=== PATIENT | female | born 1935 | race Caucasian/White ===

== ENCOUNTER 2022-08-31 17:55 | Outpatient (CLI) | payer MEDICARE, BC, SELFPAY | END 2022-08-31 17:56 | disposition home or self-care (01) | LOC: AMB 09-05 19:30 | PROVIDERS: PCP Family Medicine; Visit Provider Emergency Medicine Emergency Medical Services | DX: R06.09 Other forms of dyspnea (principal); R42 Dizziness and giddiness | CPT/HCPCS: A0425; A0429 ==

== ENCOUNTER 2022-08-31 18:39 | Observation (INO) | payer MEDICARE, BC, SELFPAY ==
[2022-08-31] VITALS (20 sets, daily range): BP systolic 127–167; BP diastolic 59–82; PULSE 65–86; RESP 16–21; TEMP 36.8–36.9; O2SAT 90–97; BMI 24.7; BMI 25.1
--- NOTE | 2022-08-31 18:58 | ED.NURSE ---
Patient reports having a syncopal episode at home prior to calling EMS. She reports no head strike or blood thinner.
--- NOTE | 2022-08-31 19:01 | CRLHL7_ITS ---
For Patients: As a result of the Cures Act, medical imaging exams and procedure reports are released immediately into your electronic medical record. You may view this report before your referring provider. If you have questions, please contact your health care provider. INDICATION: Cough, syncope. TECHNIQUE: Chest 1 views. COMPARISON: Chest x-ray from 10/27/2017. FINDINGS: Lungs: Clear lungs. No consolidation. Pleura: No pleural effusion or pneumothorax. Heart and Mediastinum: The cardiomediastinal silhouette is normal. The vessels are unremarkable. Bones: Unremarkable. IMPRESSION: No acute cardiopulmonary disease. Dictated by Eric Jordan MD @ 08/31/2022 7:35:27 PM (Electronically Signed)
--- NOTE | 2022-08-31 19:03 | ED.GENADULT ---
HPI - General Adult General Time Seen by Provider: 19:03 Date Seen: 08/31/22 Chief complaint: Weakness Stated complaint: Shortness of Breath Time Seen by Provider: 08/31/22 18:57 Source: patient, family, EMS and RN notes reviewed Mode of arrival: EMS Limitations: no limitations History of Present Illness HPI narrative: Patient is an 86-year-old female coming in via EMS after she became syncopal at home. This was witnessed by her relative. She was sitting in her walker and started to slump forward. The patient was caught and then came 2. She was feeling dizzy and nauseated. She has really not felt like eating today. She started coughing yesterday. She required some propping up to be able to sleep overnight. She did do a home COVID test which was negative. She states she is fully vaccinated. She is not nauseated at this time, did not have any vomiting. No diarrhea. Baseline has urinary incontinence. No chest pain, palpitations. Her problem list is reviewed, medications reviewed. Does not sound like there is any seizure activity, spell was brief. She remembers events right before and after. Related Data Home Medications Medication Instructions Recorded Confirmed acetaminophen 500 mg tablet mg PO PRN 05/15/22 08/14/22 albuterol 90 mcg/actuation aerosol 2 spray inhalation PRN 05/15/22 08/14/22 inhaler alendronate 70 mg tablet (Fosamax) 70 mg PO QWEEK 05/15/22 08/14/22 amlodipine 5 mg tablet mg PO DAILY 05/15/22 08/14/22 ascorbic acid (vitamin C) 500 mg 500 mg PO DAILY 05/15/22 08/31/22 tablet aspirin 81 mg tablet,delayed mg PO DAILY 05/15/22 08/14/22 release benzonatate 200 mg capsule 200 mg PO TID 05/15/22 08/14/22 cholecalciferol (vitamin D3) 25 1,000 unit PO DAILY 05/15/22 08/31/22 mcg (1,000 unit) tablet docusate sodium 100 mg capsule 100 mg PO QDAY 05/15/22 08/31/22 melatonin 3 mg capsule 3 mg PO .Bedtime as needed PRN 05/15/22 08/31/22 metoprolol tartrate 100 mg tablet mg PO BID 05/15/22 08/14/22 multivitamin with minerals 1 tab PO ONCE 05/15/22 08/31/22 (Multiple Vitamin-Minerals tablet) rosuvastatin 20 mg tablet 20 mg PO .Bedtime 05/15/22 08/31/22 zinc sulfate 50 mg zinc (220 mg) mg PO DAILY 05/15/22 08/14/22 capsule lisinopril 10 mg tablet 30 mg PO DAILY 08/14/22 08/31/22 Previous Rx's Medication Instructions Recorded clobetasol 0.05 % topical ointment 1 applic topical .Weekly #15 grams 05/15/22 Allergies Allergy/AdvReac Type Severity Reaction Status Date / Time No Known Allergies Allergy Unknown Unknown Uncoded 08/14/22 08:41 Review of Systems Status of ROS: Reports: 10 or more systems reviewed and unremarkable except as noted in History and below PFSH [facility] Social History Smoking Status: Former smoker Do you use any of these nicotine containing products: None Second hand tobacco smoke exposure: No How often do you have a drink containing alcohol: never AUDIT-C Alcohol total score: 0 Non-prescribed substance use: denies use service: No Exam Const: Vital Signs, click to edit/add: Vital Signs - 24 hr 08/31/22 18:46 08/31/22 19:23 08/31/22 19:11 Temperature 98.2 F Pulse Rate 75 Pulse Rate [Pulse Oximeter] 80 Respiratory Rate 16 Blood Pressure [Le ft Upper Arm] 138/65 Pulse Oximetry 93 94 95 Oxygen Delivery Me thod Room Air Documenting provider has reviewed patient's vital signs: yes Common normals: no apparent distress, oriented x3, no limitations, healthy appearing, alert and well nourished General appearance: cooperative, comfortable, well kempt and well developed Nutritional appearance: thin HENMT: Common normals: normocephalic, head/scalp atraumatic, hearing grossly normal bilaterally, external ears normal, external nose normal, nasal mucous membranes and turbinates normal, moist oral mucous membranes and oropharynx normal Head and scalp: normocephalic and atraumatic Nose: external nose normal and nasal mucous membranes and turbinates normal External ear: external ears normal Eye: Common normals: PERRL, EOMs intact bilaterally, conjunctivae normal and no scleral icterus Conjunctiva: conjunctiva(e) normal Pupil: PERRL Neck & C-Spine: Common normals: full ROM, no lymphadenopathy, supple, no meningeal signs, no JVD and thyroid normal Thyroid: thyroid normal Chest: Common normals: inspection of chest normal (Has some kyphosis) and palpation of chest normal Resp: Common normals: normal respiratory effort, no retractions, no use of accessory muscles and clear to auscultation bilaterally Auscultation: clear to auscultation bilaterally Cardio: Common normals: no JVD, regular rate, regular rhythm, S1 normal heart sound, S2 normal heart sound, no gallops, no clicks, no murmurs and no rub Rate: regular rate Rhythm: regular rhythm Heart sounds: S1 normal and S2 normal GI: Common normals: Normal to inspection, nondistended, normoactive bowel sounds present, soft to palpation, non-tender, no hepatosplenomegaly and no masses Palpation: soft and no hepatosplenomegaly Extremity: Other: No lower extremity edema, no calf tenderness. Neuro: Common normals: oriented x3, CN's II-XII intact bilaterally, moves all extremities, no focal motor deficits and no sensory deficits noted Sensorium/orientation: alert Meningeal signs: no meningeal signs Speech: speech normal Psych: Appearance: well kempt Skin: Common normals: no rashes or lesions noted General skin exam: no rashes or lesions noted Course Course Hospital Course: Patient will be on cardiac monitoring and pulse oximetry. We will do the triple swab viral panel. Will get a portable chest x-ray. Will get full complement of labs. She certainly could have something along the lines of influenza or COVID, causing weakness. Pneumonia is a possibility as well. Will look at cardiac markers. She is having no chest pain, is not tachypneic, not tachycardic, not hypotensive, doubt this is thromboembolic disease or any significant cardiac diagnosis. She has no focal deficits, very unlikely for this to be neurologic. Will not be doing a head CT at this time as I think the benefits of this are minimal to none. Reevaluation(s) Reevaluation #1: Reviewed that patient has COVID. No other concerning etiology at this time found for cause of syncope other than the COVID and probable weakness. They both feel patient is too weak to return home. She is not hypoxic here. Did discuss REM does severe, use for treatment in early COVID to help minimize progression of disease. She would like to proceed with treatment. I subsequently contacted the hospitalist who will be down to see the patient. She does agree with starting Remdesivir and I have ordered the initial 200 mg IV in the 3 day dose treatment protocol. Time: 21:00 Vital Signs Vital signs: Initial Vital Signs Temperature 98.2 F 08/31/22 18:46 Temperature Source Temporal Artery Scan 08/31/22 18:46 Pulse Rate 80 08/31/22 18:46 Respiratory Rate 16 08/31/22 18:46 Blood Pressure 138/65 08/31/22 18:46 Blood Pressure Mean 89 08/31/22 18:46 Blood Pressure Position Semi-Fowlers 08/31/22 18:46 Pulse Oximetry 93 08/31/22 18:46 Oxygen Delivery Method 08/31/22 18:46 Vital Signs Temperature 98.2 F 08/31/22 18:46 Pulse Rate 80 08/31/22 18:46 Respiratory Rate 16 08/31/22 18:46 Blood Pressure 138/65 08/31/22 18:46 Pulse Oximetry 93 08/31/22 18:46 Oxygen Delivery Method 08/31/22 18:46 Temperature 98.2 F 08/31/22 18:46 Pulse Rate 75 08/31/22 19:11 Respiratory Rate 16 08/31/22 18:46 Blood Pressure 138/65 08/31/22 18:46 Pulse Oximetry 94 08/31/22 19:23 Oxygen Delivery Method 08/31/22 18:46 Medical Decision Making Lab Data Lab results reviewed: Yes I reviewed the patient's lab results Labs: Lab Results 08/31/22 08/31/22 08/31/22 Range/Units 19:02 19:20 19:20 WBC 7.58 (4.50-11.00) K/uL RBC 4.40 (4.00-5.20) m/uL Hgb 13.7 (12.0-16.0) gm/dL Hct 41.7 (33.0-51.0) % MCV 95 (80-100) fL MCH 31 (26-34) pg MCHC 33 (32-36) gm/dL RDW Coeff of Sean 12.4 (11.5-15.5) % Plt Count 164 (140-440) K/uL Neut % (Auto) 87.5 H (42.0-72.0) % Lymph % (Auto) 6.2 L (20-44) % Graham % (Auto) 5.9 (0.0-11.0) % Eos % (Auto) 0.0 (0.0-7.0) % Baso % (Auto) 0.1 (0.0-3.0) % Neut # (Auto) 6.60 (1.7-7.0) K/uL Lymph # (Auto) 0.50 L (0.90-2.90) K/uL Graham # (Auto) 0.40 (0.00-0.90) K/UL Eos # (Auto) 0.00 (0.00-0.50) K/uL Baso # (Auto) 0.01 (0.00-0.30) K/uL Sodium (135-149) mmol/L Potassium (3.6-5.1) mmol/L Chloride (96-114) mmol/L Carbon Dioxide (20-32) mmol/L BUN (7-30) mg/dL Creatinine (0.5-1.5) mg/dL Estimated Creat Clear Estimated GFR ml/min Glucose (60-115) mg/dL Lactate (0.5-1.9) mmol/L Calcium (8.4-10.6) mg/dL Total Bilirubin (0.1-1.5) mg/dL AST (12-35) U/L ALT (4-35) U/L Alkaline Phosphatase (40-150) U/L C-Reactive Protein 1.1 H (0.5-1.0) mg/dL NT-Pro-B Natriuret Pep pg/mL Total Protein (6.0-8.3) g/dL Albumin (3.3-5.0) g/dL SARS-CoV-2 (PCR) POSITIVE SARS-CoV-2 A (Negative) Influenza Type A (PCR) Negative PCR FLU A (Negative) Influenza Type B (PCR) Negative PCR FLU B (Negative) RSV (PCR) Negative PCR RSV (Negative) POC Troponin I (0.01-0.04) ng/ml 08/31/22 08/31/22 08/31/22 Range/Units 19:20 19:20 19:20 WBC (4.50-11.00) K/uL RBC (4.00-5.20) m/uL Hgb (12.0-16.0) gm/dL Hct (33.0-51.0) % MCV (80-100) fL MCH (26-34) pg MCHC (32-36) gm/dL RDW Coeff of Sean (11.5-15.5) % Plt Count (140-440) K/uL Neut % (Auto) (42.0-72.0) % Lymph % (Auto) (20-44) % Graham % (Auto) (0.0-11.0) % Eos % (Auto) (0.0-7.0) % Baso % (Auto) (0.0-3.0) % Neut # (Auto) (1.7-7.0) K/uL Lymph # (Auto) (0.90-2.90) K/uL Graham # (Auto) (0.00-0.90) K/UL Eos # (Auto) (0.00-0.50) K/uL Baso # (Auto) (0.00-0.30) K/uL Sodium 137 (135-149) mmol/L Potassium 3.5 L (3.6-5.1) mmol/L Chloride 102 (96-114) mmol/L Carbon Dioxide 28 (20-32) mmol/L BUN 10 (7-30) mg/dL Creatinine 0.6 (0.5-1.5) mg/dL Estimated Creat Clear 33.12 Estimated GFR 88 ml/min Glucose 132 H (60-115) mg/dL Lactate 1.1 (0.5-1.9) mmol/L Calcium 8.7 (8.4-10.6) mg/dL Total Bilirubin 0.7 (0.1-1.5) mg/dL AST 25 (12-35) U/L ALT 18 (4-35) U/L Alkaline Phosphatase 58 (40-150) U/L C-Reactive Protein (0.5-1.0) mg/dL NT-Pro-B Natriuret Pep 1790 pg/mL Total Protein 6.8 (6.0-8.3) g/dL Albumin 4.2 (3.3-5.0) g/dL SARS-CoV-2 (PCR) (Negative) Influenza Type A (PCR) (Negative) Influenza Type B (PCR) (Negative) RSV (PCR) (Negative) POC Troponin I 0.00 L (0.01-0.04) ng/ml Imaging Data Chest x-ray: Attestation: I have reviewed the pertinent imaging results. My impression: I see no acute pathology on my preliminary read. Radiologist's impression: Patient: SANDY MARMOLEJO Facility:?[facility] Patient ID:?[id number] Site Patient ID:?[id number]. Site :?[id number] Study:?XRay Chest PORTABLE-08/31/2022 7:32:34 PM Ordering Physician:George Price Final Report: INDICATION: Cough, syncope. TECHNIQUE: Chest 1 views. COMPARISON: Chest x-ray from 10/27/2017. FINDINGS: Lungs: Clear lungs. No consolidation. Pleura: No pleural effusion or pneumothorax. Heart and Mediastinum: The cardiomediastinal silhouette is normal. The vessels are unremarkable. Bones: Unremarkable. IMPRESSION: No acute cardiopulmonary disease. Dictated by Eric Jordan MD @ 08/31/2022 7:35:27 PM (Electronic Signature) ECG Data Attestation: I personally reviewed and interpreted this ECG as follows: (Normal sinus rhythm, 74 beats per minute. Flattened T-waves which are nonspecifically arranged. No significant ST segment change. QT corrected 439 milliseconds. Some artifact.) Prior ECG tracings: not available for review Critical Care Time Critical Care Time Critical Care Time: No Discharge Plan Discharge Clinical Impression: COVID-19, Syncope, Weakness Patient Disposition: Admitted As Inpatient Condition: Stable Prescriptions: No Action melatonin 3 mg capsule 3 mg PO .Bedtime as needed PRN cholecalciferol (vitamin D3) 25 mcg (1,000 unit) tablet 1,000 unit PO DAILY zinc sulfate 50 mg zinc (220 mg) capsule PO DAILY rosuvastatin 20 mg tablet 20 mg PO .Bedtime albuterol 90 mcg/actuation aerosol 2 spray inhalation PRN ascorbic acid (vitamin C) 500 mg tablet 500 mg PO DAILY acetaminophen 500 mg tablet PO PRN aspirin 81 mg tablet,delayed release (DR/EC) PO DAILY amlodipine 5 mg tablet PO DAILY metoprolol tartrate 100 mg tablet PO BID alendronate [Fosamax] 70 mg tablet 70 mg PO QWEEK Multiple Vitamin-Minerals Tablet 1 tab PO ONCE docusate sodium 100 mg capsule 100 mg PO QDAY benzonatate 200 mg capsule 200 mg PO TID clobetasol 0.05 % ointment 1 applic topical .Weekly Qty: 15 1RF Rx Instructions: APPLY SPARINGLY TO AFFECTED AREA lisinopril 10 mg tablet 30 mg PO DAILY Follow Up/Referrals: Chucho Daugherty MD [Primary Care Provider] -
[2022-08-31 19:34] LABS: Lactate* 1.1 mmol/L (0.5-1.9)
[2022-08-31 19:35] LABS: Basophils Absolute Auto 0.01 K/uL (0.00-0.30); Basophils Percent Auto 0.1 % (0.0-3.0); Hematocrit 41.7 % (33.0-51.0); Hemoglobin* 13.7 gm/dL (12.0-16.0); Immature Granulocytes Abs Auto 0.02 K/uL (0.00-0.30); Immature Granulocytes Pct Auto 0.3 %; Lymphocytes Percent Auto 6.2 % (20-44); Mean Corpuscular HGB Conc 33 gm/dL (32-36); Mean Corpuscular Hemoglobin 31 pg (26-34); Mean Corpuscular Volume 95 fL (80-100); Monocytes Percent Auto 5.9 % (0.0-11.0); Neutrophils Percent Auto 87.5 % (42.0-72.0); Platelet Count* 164 K/uL (140-440); RDW Coefficient of Variation % 12.4 % (11.5-15.5); White Blood Count* 7.58 K/uL (4.50-11.00)
[2022-08-31 19:42] LABS: Slide Review Reflex No
[2022-08-31 20:14] LABS: Albumin* 4.2 g/dL (3.3-5.0); Chloride* 102 mmol/L (96-114); Sodium* 137 mmol/L (135-149)
[2022-08-31 20:15] LABS: Potassium* 3.5 mmol/L (3.6-5.1)
[2022-08-31 20:16] LABS: PCR FLU A Negative PCR FLU A (Negative); PCR FLU B Negative PCR FLU B (Negative); PCR RSV Negative PCR RSV (Negative)
[2022-08-31 20:17] LABS: Alanine Aminotransferase* 18 U/L (4-35); Alkaline Phosphatase* 58 U/L (40-150); Aspartate Amino Transferase* 25 U/L (12-35); Bilirubin Total* 0.7 mg/dL (0.1-1.5); Blood Urea Nitrogen* 10 mg/dL (7-30); Carbon Dioxide* 28 mmol/L (20-32); Creatinine* 0.6 mg/dL (0.5-1.5); Est. Creatinine Clearance* 33.12; Estimated Glomerular Filt Rate 88 ml/min; Glucose* 132 mg/dL (60-115); Total Protein* 6.8 g/dL (6.0-8.3)
[2022-08-31 20:18] LABS: Calcium* 8.7 mg/dL (8.4-10.6)
[2022-08-31 20:20] LABS: C Reactive Protein* 1.1 mg/dL (0.5-1.0)
[2022-08-31 20:21] LABS: SARS PCR* POSITIVE SARS-CoV-2 (Negative)
[2022-08-31 20:41] LABS: NT Pro B Type NatriureticPept* 1790 pg/mL
--- NOTE | 2022-08-31 21:46 | ED.NURSE ---
given report to Eris Phipps who will resume care of patient on the floor room [id number] via cart.
--- NOTE | 2022-08-31 22:22 | PM.IMHP1 ---
Hospitalist- H&P: HPI History of Present Illness Date Seen: 08/31/22 Chief complaint: Shortness of Breath Narrative: Sarita Bill is a 86 year old female who was BIBA today after syncopal episode at home, witnessed by her daughter Lali, who accompanies her for H&P. Sarita has felt poorly for the last 2 days; symptoms started with fatigue and coughing. She coughed so hard last night she struggled to sleep. This morning, she was using her walker (which she does not always use at home) and was standing to filler remitted fire, when she felt acutely dizzy (no chest pain or palpitations). She sat down on her walker and proceeded to have a syncopal episode; this was witnessed by her daughter, who was able to catch her so that she did not hit her head. Episode resolved spontaneously without seizure activity, EMS was then called. Sarita remembers incidents before and after event. ER course and findings: - EKG described as reassuring - no acute findings on chest x-ray - reassuring baseline labs - + COVID, no hypoxia. Remdesivir initiated in the emergency room Patient's past medical and surgical history reviewed and updated. Her PCP is Dr. Daugherty locally and she falls with Dr. Dickens of Cardiology for her CAD/CABG history. Her lisinopril was recently increased from 20-->30 mg a day; she is also on 10 mg of amlodipine and 100 mg of metoprolol BID for blood pressure control. She was earlier this year; lives with daughter Lali locally. Nonsmoker, no ETOH use. 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 She has 2 biological children, 4 step children; they would all shared medical decision-making duties if needed. She requests DNR/DNI status. Review of Systems Narrative: Patient notes said since she had her CABG in 2019 she occasionally feels her heartbeat in her throat, primarily in the evenings. Two nights ago, when she felt this, she felt that her heart was beating faster than usual, and maybe was irregular. Chronic constipation, better with daily fiber supplementation. + pessary in place. [facility] Medical History (Updated 08/31/22 @ 22:43 by Darshana Delgado MD) Cholelithiasis with cholecystitis Coronary artery disease Essential hypertension Fibromyalgia Hyperlipidemia Lichen sclerosus Malignant neoplasm of skin Osteoarthritis Osteopenia Polyp of colon Rectocele Stress incontinence in female Vaginal pessary present Vaginal vault prolapse Surgical History (Updated 08/31/22 @ 22:22 by Darshana Delgado MD) H/O: hysterectomy History of tonsillectomy Hx of CABG Total knee replacement status Social History Smoking Status: Former smoker Do you use any of these nicotine containing products: None Second hand tobacco smoke exposure: No How often do you have a drink containing alcohol: never AUDIT-C Alcohol total score: 0 Non-prescribed substance use: denies use service: No Meds Home Medications and Allergies Home Medications Medication Instructions Recorded Confirmed Type acetaminophen 500 mg tablet mg PO PRN 05/15/22 08/14/22 History albuterol 90 mcg/actuation aerosol 2 spray inhalation PRN 05/15/22 08/14/22 History inhaler alendronate 70 mg tablet (Fosamax) 70 mg PO QWEEK 05/15/22 08/14/22 History amlodipine 5 mg tablet mg PO DAILY 05/15/22 08/14/22 History ascorbic acid (vitamin C) 500 mg 500 mg PO DAILY 05/15/22 08/31/22 History tablet aspirin 81 mg tablet,delayed mg PO DAILY 05/15/22 08/14/22 History release benzonatate 200 mg capsule 200 mg PO TID 05/15/22 08/14/22 History cholecalciferol (vitamin D3) 25 1,000 unit PO DAILY 05/15/22 08/31/22 History mcg (1,000 unit) tablet docusate sodium 100 mg capsule 100 mg PO QDAY 05/15/22 08/31/22 History melatonin 3 mg capsule 3 mg PO .Bedtime as needed PRN 05/15/22 08/31/22 History metoprolol tartrate 100 mg tablet mg PO BID 05/15/22 08/14/22 History multivitamin with minerals 1 tab PO ONCE 05/15/22 08/31/22 History (Multiple Vitamin-Minerals tablet) rosuvastatin 20 mg tablet 20 mg PO .Bedtime 05/15/22 08/31/22 History zinc sulfate 50 mg zinc (220 mg) mg PO DAILY 05/15/22 08/14/22 History capsule lisinopril 10 mg tablet 30 mg PO DAILY 08/14/22 08/31/22 History Allergies Allergy/AdvReac Type Severity Reaction Status Date / Time No Known Allergies Allergy Unknown Unknown Uncoded 08/14/22 08:41 Exam Narrative: Exam Narrative: GEN: Alert and oriented, laying comfortably in ER bed nontoxic in appearance HEENT: Normal external ears, EOMIs bilaterally, no scleral icterus CV: RRR, No concerning murmurs, rubs, or gallops R: LCTA bilaterally without concerning wheezing, rales, or rhonchi. No tachypnea, air movement adequate Abdomen: Soft and nontender without concerning masses Ext: wwp, no concerning edema Skin: Scattered bruising of upper extremities, no concerning features Neuro: No focal deficits Psych: Appropriate Const: Vital Signs, click to edit/add: Vital Signs - 24 hr 08/31/22 18:46 08/31/22 19:23 08/31/22 19:11 Temperature 98.2 F Pulse Rate 75 Pulse Rate [Left R adial] Pulse Rate [Pulse Oximeter] 80 Respiratory Rate 16 Blood Pressure Blood Pressure [Le ft Arm] Blood Pressure [Le ft Upper Arm] 138/65 Pulse Oximetry 93 94 95 Oxygen Delivery Me thod Room Air 08/31/22 19:15 08/31/22 19:30 08/31/22 19:34 Temperature Pulse Rate 77 77 75 Pulse Rate [Left R adial] Pulse Rate [Pulse Oximeter] Respiratory Rate Blood Pressure 153/68 H Blood Pressure [Le ft Arm] Blood Pressure [Le ft Upper Arm] Pulse Oximetry 95 94 95 Oxygen Delivery Me thod 08/31/22 19:45 08/31/22 20:00 08/31/22 20:03 Temperature Pulse Rate 77 73 70 Pulse Rate [Left R adial] Pulse Rate [Pulse Oximeter] Respiratory Rate Blood Pressure 139/59 L Blood Pressure [Le ft Arm] Blood Pressure [Le ft Upper Arm] Pulse Oximetry 93 91 90 Oxygen Delivery Me thod 08/31/22 20:15 08/31/22 20:30 08/31/22 20:32 Temperature Pulse Rate 67 69 71 Pulse Rate [Left R adial] Pulse Rate [Pulse Oximeter] Respiratory Rate Blood Pressure 140/60 H Blood Pressure [Le ft Arm] Blood Pressure [Le ft Upper Arm] Pulse Oximetry 91 90 90 Oxygen Delivery Me thod 08/31/22 20:45 08/31/22 20:30 08/31/22 21:30 Temperature Pulse Rate 75 Pulse Rate [Left R adial] Pulse Rate [Pulse Oximeter] 79 79 Respiratory Rate 21 20 Blood Pressure Blood Pressure [Le ft Arm] Blood Pressure [Le ft Upper Arm] 146/71 H 146/76 H Pulse Oximetry 90 94 93 Oxygen Delivery Me thod Room Air Room Air 08/31/22 22:19 Temperature 98.4 F Pulse Rate Pulse Rate [Left R adial] 86 Pulse Rate [Pulse Oximeter] Respiratory Rate 16 Blood Pressure Blood Pressure [Le ft Arm] 127/70 Blood Pressure [Le ft Upper Arm] Pulse Oximetry 94 Oxygen Delivery Me thod Room Air Hospitalist - H&P: Result Labs Labs: Short CBC 08/31/22 Range/Units 19:20 WBC 7.58 (4.50-11.00) K/uL Hgb 13.7 (12.0-16.0) gm/dL Hct 41.7 (33.0-51.0) % Plt Count 164 (140-440) K/uL BMP 08/31/22 19:20 Sodium 137 Potassium 3.5 L Chloride 102 Carbon Dioxide 28 BUN 10 Creatinine 0.6 Glucose 132 H Calcium 8.7 Liver Function 08/31/22 Range/Units 19:20 Total Bilirubin 0.7 (0.1-1.5) mg/dL AST 25 (12-35) U/L ALT 18 (4-35) U/L Alkaline Phosphatase 58 (40-150) U/L Albumin 4.2 (3.3-5.0) g/dL Assessment and Plan Assessment and plan (1) COVID-19: Problem comment: - Remdesivir initiated in ED - not requiring supplemental oxygen at this time Status: Acute (2) Syncope: Problem comment: - likely vasovagal given illness, decreased po intake - EKG reported is reassuring, labs reassuring - no seizure activity and patient is asymptomatic at this time - we will obtain orthostatic blood pressures, follow on telemetry - holding orders on home blood pressure medications to prevent iatrogenic hypotension while sick Status: Acute (3) Weakness: Problem comment: - PT and OT evaluations ordered Status: Acute (4) Coronary artery disease: Problem comment: - continue home ASA and statin Status: Acute (5) Essential hypertension: Status: Acute (6) Chronic constipation: Problem comment: - continue fiber supplementation, prn medications Status: Acute Plan - per above - Lovenox for prophylaxis - DNR/DNI status
[2022-08-31] MEDS: guaiFENesin 100 MG/ML CUP PO (23:11)
[2022-09-01] VITALS (8 sets, daily range): BP systolic 80–155; BP diastolic 51–107; PULSE 68–99; RESP 16–20; TEMP 36.6–37.6; O2SAT 93–97
--- NOTE | 2022-09-01 03:26 | PC.NURSE ---
Pt came to Floor @ 2200. Oriented x3. Afebrile. Pt up IND in room with walker and stable on feet. No Dizziness. VS unremarkable. Reporting zero pain. Covid Pos.
--- NOTE | 2022-09-01 03:28 | PC.NURSE ---
Pt remained on RA all night. Sats in the mid to high 90s. No SOB with ambulation.
[2022-09-01 07:05] LABS: Hematocrit 40.1 % (33.0-51.0); Hemoglobin* 13.4 gm/dL (12.0-16.0); Mean Corpuscular Hemoglobin 31 pg (26-34); Mean Corpuscular Volume 94 fL (80-100); Red Blood Count 4.28 m/uL (4.00-5.20); White Blood Count* 5.89 K/uL (4.50-11.00)
[2022-09-01 07:06] LABS: Basophils Percent Auto 0.3 % (0.0-3.0); Immature Granulocytes Pct Auto 0.8 %; Lymphocytes Percent Auto 13.8 % (20-44); Mean Corpuscular HGB Conc 33 gm/dL (32-36); Monocytes Percent Auto 10.4 % (0.0-11.0); Neutrophils Percent Auto 74.7 % (42.0-72.0); Platelet Count* 164 K/uL (140-440); Slide Review Reflex No
[2022-09-01 08:43] LABS: Chloride* 105 mmol/L (96-114); Potassium* 3.3 mmol/L (3.6-5.1); Sodium* 140 mmol/L (135-149)
[2022-09-01 08:44] LABS: Blood Urea Nitrogen* 10 mg/dL (7-30); Calcium* 8.7 mg/dL (8.4-10.6); Carbon Dioxide* 29 mmol/L (20-32); Glucose* 93 mg/dL (60-115); Total Protein* 6.1 g/dL (6.0-8.3)
[2022-09-01 08:45] LABS: Alanine Aminotransferase* 17 U/L (4-35); Albumin* 3.8 g/dL (3.3-5.0); Alkaline Phosphatase* 56 U/L (40-150); Aspartate Amino Transferase* 27 U/L (12-35); Bilirubin Total* 0.5 mg/dL (0.1-1.5); Troponin I* < 0.01 ng/mL (0.01-0.04)
[2022-09-01 08:46] LABS: Creatinine* 0.5 mg/dL (0.5-1.5); Est. Creatinine Clearance* 33.12; Estimated Glomerular Filt Rate 92 ml/min
[2022-09-01] MEDS: lisinopriL 10 MG TABLET 30 MG PO (09:06)
[2022-09-01] MEDS: ASPIRIN 81 MG TABLET EC PO (09:06)
[2022-09-01] MEDS: AMLODIPINE 5 MG TABLET 10 MG PO (09:07)
[2022-09-01] MEDS: METOPROLOL TARTRATE 100 MG TABLET PO ×2 (09:51→22:27)
[2022-09-01] MEDS: BENZONATATE 100 MG CAPSULE 200 MG PO ×3 (09:52→22:26)
[2022-09-01] MEDS: ACETAMINOPHEN 325 MG TABLET 975 MG PO (09:52)
[2022-09-01] MEDS: 0.9 % SODIUM CHLORIDE 500 ML 500 ML IV ×2 (11:45→16:07)
--- NOTE | 2022-09-01 16:02 | PC.NURSE ---
Pt had poor orthostatic BPs, low grade temp. Please see eMar for medications provided on day shift. New order for 500 cc fluid bolus over 1 hour initiated, shortly afterwards IV beeping occluded and leaking visible. Held bolus until RN able to insert new IV site #20 to right forearm late this afternoon. Pt requested right arm as she is left handed and couldn't keep from bending her left arm while she was eating. Report to oncoming shift RN Monique Gardner.
--- NOTE | 2022-09-01 16:50 | P.IMPN_ITS ---
Progress Note: A&P Assessment and plan (1) COVID-19: Problem details: - Remdesivir initiated in ED - not requiring supplemental oxygen at this time Status: Acute (2) Syncope: Problem details: - likely vasovagal given illness, decreased po intake - EKG reported is reassuring, labs reassuring - no seizure activity and patient is asymptomatic at this time - fairly significant orthostasis suggestive of possible dehydration - holding orders on home blood pressure medications to prevent iatrogenic hypotension while sick Status: Acute (3) Weakness: Problem details: - PT and OT evaluations ordered Status: Acute (4) Coronary artery disease: Problem details: - continue home ASA and statin Status: Acute (5) Essential hypertension: Status: Acute (6) Chronic constipation: Problem details: - continue fiber supplementation, prn medications Status: Acute (7) Dehydration: Status: Acute Assessment and Plan: 500 mL normal saline IV bolus Continue to monitor orthostatic blood pressures and pulses Plan Continue the supportive efforts. Time Spent With Patient Total time spent: 30 minutes Subjective Time Seen by Provider: 12:00 Date Seen: 09/01/22 Interval history: Hospital day 2. Sarita Bill is a 86 year old female who was BIBA today after syncopal episode at home, witnessed by her daughter Lali, who accompanies her for H&P. Sarita has felt poorly for the last 2 days; symptoms started with fatigue and coughing.? She coughed so hard last night she struggled to sleep. This morning, she was using her walker (which she does not always use at home) and was standing to filler remitted fire, when she felt acutely dizzy (no chest pain or palpitations).? She sat down on her walker and proceeded to have a syncopal episode; this was witnessed by her daughter, who was able to catch her so that she did not hit her head. Episode resolved spontaneously without seizure activity, EMS was then called.? Sarita remembers incidents before and after event. ER course and findings: ?- EKG described as reassuring ?- no acute findings on chest x-ray ?- reassuring baseline labs ?- + COVID, no hypoxia.? Remdesivir initiated in the emergency room Feels improved today. Does not feel as orthostatic as she did yesterday. Still feels weak and fatigued. Nevertheless feels better than yesterday and day prior. Exam Narrative: Exam Narrative: Alert, oriented to self, place, time, situation. Friendly, cooperative, articulate. Mood and affect are congruent. Lungs clear to auscultation. Heart tones with regular rhythm. Abdomen with active bowel sounds, soft, nontender. Extremities without edema. Independent transfer, station, and gait. No focal motor neurologic deficits. Skin is warm, dry, intact. Const: Vital Signs, click to edit/add: Vital Signs - 24 hr 08/31/22 18:46 08/31/22 19:23 08/31/22 19:11 Temperature 98.2 F Pulse Rate 75 Pulse Rate [Left R adial] Pulse Rate [Pulse Oximeter] 80 Pulse Rate [orthos tatic lying] Pulse Rate [orthos tatic sitting Radi al] Pulse Rate [orthos tatic standing Lef t Radial] Respiratory Rate 16 Blood Pressure Blood Pressure [Le ft Arm] Blood Pressure [Le ft Upper Arm] 138/65 Blood Pressure [or thostatic lying Le ft Arm] Blood Pressure [or thostatic sitting Left Arm] Blood Pressure [or thostatic standing Left Arm] Pulse Oximetry 93 94 95 Oxygen Delivery Me thod Room Air 08/31/22 19:15 08/31/22 19:30 08/31/22 19:34 Temperature Pulse Rate 77 77 75 Pulse Rate [Left R adial] Pulse Rate [Pulse Oximeter] Pulse Rate [orthos tatic lying] Pulse Rate [orthos tatic sitting Radi al] Pulse Rate [orthos tatic standing Lef t Radial] Respiratory Rate Blood Pressure 153/68 H Blood Pressure [Le ft Arm] Blood Pressure [Le ft Upper Arm] Blood Pressure [or thostatic lying Le ft Arm] Blood Pressure [or thostatic sitting Left Arm] Blood Pressure [or thostatic standing Left Arm] Pulse Oximetry 95 94 95 Oxygen Delivery Me thod 08/31/22 19:45 08/31/22 20:00 08/31/22 20:03 Temperature Pulse Rate 77 73 70 Pulse Rate [Left R adial] Pulse Rate [Pulse Oximeter] Pulse Rate [orthos tatic lying] Pulse Rate [orthos tatic sitting Radi al] Pulse Rate [orthos tatic standing Lef t Radial] Respiratory Rate Blood Pressure 139/59 L Blood Pressure [Le ft Arm] Blood Pressure [Le ft Upper Arm] Blood Pressure [or thostatic lying Le ft Arm] Blood Pressure [or thostatic sitting Left Arm] Blood Pressure [or thostatic standing Left Arm] Pulse Oximetry 93 91 90 Oxygen Delivery Me thod 08/31/22 20:15 08/31/22 20:30 08/31/22 20:32 Temperature Pulse Rate 67 69 71 Pulse Rate [Left R adial] Pulse Rate [Pulse Oximeter] Pulse Rate [orthos tatic lying] Pulse Rate [orthos tatic sitting Radi al] Pulse Rate [orthos tatic standing Lef t Radial] Respiratory Rate Blood Pressure 140/60 H Blood Pressure [Le ft Arm] Blood Pressure [Le ft Upper Arm] Blood Pressure [or thostatic lying Le ft Arm] Blood Pressure [or thostatic sitting Left Arm] Blood Pressure [or thostatic standing Left Arm] Pulse Oximetry 91 90 90 Oxygen Delivery Me thod 08/31/22 20:45 08/31/22 20:30 08/31/22 21:30 Temperature Pulse Rate 75 Pulse Rate [Left R adial] Pulse Rate [Pulse Oximeter] 79 79 Pulse Rate [orthos tatic lying] Pulse Rate [orthos tatic sitting Radi al] Pulse Rate [orthos tatic standing Lef t Radial] Respiratory Rate 21 20 Blood Pressure Blood Pressure [Le ft Arm] Blood Pressure [Le ft Upper Arm] 146/71 H 146/76 H Blood Pressure [or thostatic lying Le ft Arm] Blood Pressure [or thostatic sitting Left Arm] Blood Pressure [or thostatic standing Left Arm] Pulse Oximetry 90 94 93 Oxygen Delivery Me thod Room Air Room Air 08/31/22 22:19 08/31/22 22:18 08/31/22 22:30 Temperature 98.4 F 98.4 F Pulse Rate Pulse Rate [Left R adial] 86 76 Pulse Rate [Pulse Oximeter] Pulse Rate [orthos tatic lying] Pulse Rate [orthos tatic sitting Radi al] Pulse Rate [orthos tatic standing Lef t Radial] Respiratory Rate 16 16 16 Blood Pressure Blood Pressure [Le ft Arm] 127/70 127/70 Blood Pressure [Le ft Upper Arm] Blood Pressure [or thostatic lying Le ft Arm] Blood Pressure [or thostatic sitting Left Arm] Blood Pressure [or thostatic standing Left Arm] Pulse Oximetry 94 97 94 Oxygen Delivery Me thod Room Air Room Air Room Air 08/31/22 22:34 08/31/22 23:42 08/31/22 23:46 Temperature Pulse Rate 65 Pulse Rate [Left R adial] 86 Pulse Rate [Pulse Oximeter] Pulse Rate [orthos tatic lying] 82 Pulse Rate [orthos tatic sitting Radi al] 82 Pulse Rate [orthos tatic standing Lef t Radial] 85 Respiratory Rate 16 Blood Pressure Blood Pressure [Le ft Arm] Blood Pressure [Le ft Upper Arm] Blood Pressure [or thostatic lying Le ft Arm] 127/70 Blood Pressure [or thostatic sitting Left Arm] 167/72 H Blood Pressure [or thostatic standing Left Arm] 161/82 H Pulse Oximetry Oxygen Delivery Me thod 09/01/22 02:42 09/01/22 09:52 09/01/22 07:45 Temperature 98.5 F 99.4 F 99.4 F Pulse Rate Pulse Rate [Left R adial] 90 99 Pulse Rate [Pulse Oximeter] Pulse Rate [orthos tatic lying] Pulse Rate [orthos tatic sitting Radi al] Pulse Rate [orthos tatic standing Lef t Radial] Respiratory Rate 16 20 Blood Pressure Blood Pressure [Le ft Arm] 155/62 H 121/74 Blood Pressure [Le ft Upper Arm] Blood Pressure [or thostatic lying Le ft Arm] Blood Pressure [or thostatic sitting Left Arm] Blood Pressure [or thostatic standing Left Arm] Pulse Oximetry 97 93 Oxygen Delivery Me thod Room Air Room Air 09/01/22 11:00 09/01/22 11:52 09/01/22 16:40 Temperature 99.6 F 97.8 F Pulse Rate Pulse Rate [Left R adial] 68 72 Pulse Rate [Pulse Oximeter] Pulse Rate [orthos tatic lying] 68 Pulse Rate [orthos tatic sitting Radi al] 75 Pulse Rate [orthos tatic standing Lef t Radial] 78 Respiratory Rate 20 18 Blood Pressure Blood Pressure [Le ft Arm] 133/61 125/63 Blood Pressure [Le ft Upper Arm] Blood Pressure [or thostatic lying Le ft Arm] 133/61 Blood Pressure [or thostatic sitting Left Arm] 117/107 H Blood Pressure [or thostatic standing Left Arm] 80/62 L Pulse Oximetry 94 96 Oxygen Delivery Me thod Room Air Room Air Documenting provider has reviewed patient's vital signs: yes Labs Labs: Laboratory Results - last 24 hr 12/19/22 12/19/22 12/19/22 19:02 19:20 19:20 WBC 7.58 RBC 4.40 Hgb 13.7 Hct 41.7 MCV 95 MCH 31 MCHC 33 RDW Coeff of Sean 12.4 Plt Count 164 Neut % (Auto) 87.5 H Lymph % (Auto) 6.[address] [place] % (Auto) 5.9 Eos % (Auto) 0.0 Baso % (Auto) 0.1 Neut # (Auto) 6.60 Lymph # (Auto) 0.[address] [place] # (Auto) 0.40 Eos # (Auto) 0.00 Baso # (Auto) 0.01 Sodium Potassium Chloride Carbon Dioxide BUN Creatinine Estimated Creat Clear Estimated GFR Glucose Lactate Calcium Total Bilirubin AST ALT Alkaline Phosphatase Troponin I C-Reactive Protein 1.1 H NT-Pro-B Natriuret Pep Total Protein Albumin TSH SARS-CoV-2 (PCR) POSITIVE SARS-CoV-2 A Influenza Type A (PCR) Negative PCR FLU A Influenza Type B (PCR) Negative PCR FLU B RSV (PCR) Negative PCR RSV POC Troponin I 08/31/22 08/31/22 08/31/22 19:20 19:20 19:20 WBC RBC Hgb Hct MCV MCH MCHC RDW Coeff of Sean Plt Count Neut % (Auto) Lymph % (Auto) [place] % (Auto) Eos % (Auto) Baso % (Auto) Neut # (Auto) Lymph # (Auto) [place] # (Auto) Eos # (Auto) Baso # (Auto) Sodium 137 Potassium 3.5 L Chloride 102 Carbon Dioxide 28 BUN 10 Creatinine 0.6 Estimated Creat Clear 33.12 Estimated GFR 88 Glucose 132 H Lactate 1.1 Calcium 8.7 Total Bilirubin 0.7 AST 25 ALT 18 Alkaline Phosphatase 58 Troponin I C-Reactive Protein NT-Pro-B Natriuret Pep 1790 Total Protein 6.8 Albumin 4.2 TSH SARS-CoV-2 (PCR) Influenza Type A (PCR) Influenza Type B (PCR) RSV (PCR) POC Troponin I 0.00 L 09/01/22 09/01/22 09/01/22 06:37 06:37 06:37 WBC 5.89 RBC 4.28 Hgb 13.4 Hct 40.1 MCV 94 MCH 31 MCHC 33 RDW Coeff of Sean Plt Count 164 Neut % (Auto) 74.7 H Lymph % (Auto) 13.[address] [place] % (Auto) 10.4 Eos % (Auto) 0.0 Baso % (Auto) 0.3 Neut # (Auto) 4.40 Lymph # (Auto) 0.[address] [place] # (Auto) 0.60 Eos # (Auto) 0.00 Baso # (Auto) 0.00 Sodium 140 Potassium 3.3 L Chloride 105 Carbon Dioxide 29 BUN 10 Creatinine 0.5 Estimated Creat Clear 33.12 Estimated GFR 92 Glucose 93 Lactate Calcium 8.7 Total Bilirubin 0.5 AST 27 ALT 17 Alkaline Phosphatase 56 Troponin I < 0.01 L C-Reactive Protein NT-Pro-B Natriuret Pep Total Protein 6.1 Albumin 3.8 TSH 1.240 SARS-CoV-2 (PCR) Influenza Type A (PCR) Influenza Type B (PCR) RSV (PCR) POC Troponin I
[2022-09-01] MEDS: ROSUVASTATIN CALCIUM 10 MG TABLET 20 MG PO (22:27)
[2022-09-01] MEDS: ENOXAPARIN 40 MG/0.4 ML INJ SUBCUT (22:28)
[2022-09-01] MEDS: DOCUSATE SODIUM 100 MG CAPSULE PO (22:28)
[2022-09-02 03:00] VITALS: BP 141/55; PULSE 69; RESP 18; TEMP 36.6; O2SAT 93
--- NOTE | 2022-09-02 06:22 | PC.NURSE ---
Shift note: Pt is doing well, No dizziness observed, denied any pain as well. Pt is independent in room. V/S stable.
[2022-09-02 07:22] VITALS: PULSE 77
[2022-09-02 07:32] LABS: Potassium* 3.5 mmol/L (3.6-5.1)
[2022-09-02 08:37] VITALS: BP 152/82; PULSE 78; RESP 16; TEMP 37.1; O2SAT 94
[2022-09-02] MEDS: AMLODIPINE 5 MG TABLET 10 MG PO (08:42)
[2022-09-02] MEDS: lisinopriL 10 MG TABLET 30 MG PO (08:42)
[2022-09-02] MEDS: ASPIRIN 81 MG TABLET EC PO (08:43)
[2022-09-02] MEDS: BENZONATATE 100 MG CAPSULE 200 MG PO (08:43)
[2022-09-02] MEDS: METOPROLOL TARTRATE 100 MG TABLET PO (08:43)
[2022-09-02 13:04] VITALS: BP 140/60; PULSE 77; RESP 16; TEMP 37.1
--- NOTE | 2022-09-03 20:22 | P.DS_ITS ---
DS: Providers Provider Time Seen by Provider: 09:00 Date Seen: 09/02/22 Date of admission: 08/31/22 22:15 Primary care physician: Chucho Daugherty MD Admitting Clinician: Darshana Delgado MD Consults: 08/31/22 22:04 Consult to Physical Therapy [CONS] Routine Comment: Reason(s) for PT Consult:: Evaluate and Treat Any Restrictions?:: Wt Bearing as Tolerated Consult to Respiratory Therapy [CONS] Routine Comment: Reason(s) for RT Consult:: Consult 08/31/22 22:08 Consult to Occupational Therapy [CONS] Routine Comment: Reason(s) for OT Consult:: Evaluate and Treat Any Restrictions?:: Wt Bearing as Tolerated Attending Physician on discharge: Campos Rudolph MD Date of Discharge: 09/02/22 DS: Diagnosis Discharge Diagnosis (1) Syncope: Status: Acute Problem details: - likely vasovagal given illness, decreased po intake - EKG reported is reassuring, labs reassuring - no seizure activity and patient is asymptomatic at this time - fairly significant orthostasis suggestive of possible dehydration - holding orders on home blood pressure medications to prevent iatrogenic hypotension while sick (2) Weakness: Status: Acute Problem details: - PT and OT evaluations ordered (3) COVID-19: Status: Acute Problem details: - Remdesivir initiated in ED - not requiring supplemental oxygen at this time (4) Dehydration: Status: Acute (5) Chronic constipation: Status: Acute Problem details: - continue fiber supplementation, prn medications (6) Coronary artery disease: Status: Acute Problem details: - continue home ASA and statin (7) Essential hypertension: Status: Acute DS: Summary Hospital Course Hospital Course: Sarita Bill is a 86 year old female who was BIBA today after syncopal episode at home, witnessed by her daughter Lali, who accompanies her for H&P. Sarita has felt poorly for the last 2 days; symptoms started with fatigue and coughing.? She coughed so hard last night she struggled to sleep. This morning, she was using her walker (which she does not always use at home) and was standing to filler remitted fire, when she felt acutely dizzy (no chest pain or palpitations).? She sat down on her walker and proceeded to have a syncopal episode; this was witnessed by her daughter, who was able to catch her so that she did not hit her head. Episode resolved spontaneously without seizure activity, EMS was then called.? Sarita remembers incidents before and after event. ER course and findings: ?- EKG described as reassuring ?- no acute findings on chest x-ray ?- reassuring baseline labs ?- + COVID, no hypoxia.? Remdesivir initiated in the emergency room In-hospital she completed 3 days of remdesivir. She also was hydrated with IV fluids. She work closely with Physical and Occupational therapy. Her sense of weakness improved substantially during her short hospital stay. Status at Discharge Functional status at discharge: independent ambulation Overall status at discharge: patient is progressing back to baseline Time Spent with Patient Time attestation: Total time spent providing and/or coordinating discharge services: Time spent: Less than 30 minutes Exam Narrative: Exam Narrative: Alert, oriented to self, place, time, situation.? Friendly, cooperative, articulate.? Mood and affect are congruent.? Lungs clear to auscultation.? Heart tones with regular rhythm.? Abdomen with active bowel sounds, soft, nontender.? Extremities without edema.? Independent transfer, station, and gait.? No focal motor neurologic deficits.? Skin is warm, dry, intact. Const: Documenting provider has reviewed patient's vital signs: yes DS: Data Data Completed and Pending Labs on day of discharge: Preliminary micro results at discharge 08/31/22 19:20 Blood Culture - Preliminary Blood No growth. Imaging Chest x-ray: Attestation: I have reviewed the pertinent imaging results. Radiologist's impression: 08/31/2022: No acute or chronic cardiopulmonary abnormalities Discharge Plan Discharge Disposition: Home, Self-Care Date of Admission: 08/31/22 22:15 Attending Provider on Discharge: Campos Rudolph Primary Care Provider: Chucho Daugherty Condition: Improved Anticipated Discharge Date/Time: 09/02/22 13:30 Discharge Medications: New Mucinex 1,200 mg tablet extended release 12hr 1,200 mg PO BID Qty: 10 0RF Continued melatonin 3 mg capsule 3 mg PO HS PRN cholecalciferol (vitamin D3) 25 mcg (1,000 unit) tablet 1,000 unit PO DAILY zinc sulfate 50 mg zinc (220 mg) capsule 50 mg PO DAILY rosuvastatin 20 mg tablet 20 mg PO HS ascorbic acid (vitamin C) 500 mg tablet 500 mg PO DAILY acetaminophen 500 mg tablet 500 mg PO Q4H PRN aspirin 81 mg tablet,delayed release (DR/EC) 81 mg PO DAILY metoprolol tartrate 100 mg tablet 100 mg PO BID alendronate [Fosamax] 70 mg tablet 70 mg PO QWEEK Multiple Vitamin-Minerals Tablet 1 tab PO DAILY benzonatate 200 mg capsule 200 mg PO TID PRN amlodipine 10 mg tablet 10 mg PO DAILY Label Comments: TAKE 1 TABLET (10 MG) BY MOUTH ONCE DAILY. lisinopril 30 mg tablet 30 mg PO DAILY clobetasol 0.05 % ointment 1 applic topical Q7D Rx Instructions: APPLY SPARINGLY TO AFFECTED AREA Fiber Supplement (inulin) 2 gram tablet,chewable 1 tab PO DAILY sennosides-docusate sodium [Docuzen] 8.6-50 mg tablet 1 tab-cap PO DAILY Discharge Orders: Discharge Order (Routine); Ordered 09/02/22 Ordered By: Campos Rudolph Patient Education: Dehydration (GEN), COVID-19 (Coronavirus Disease 2019) (GEN), COVID-19 and Chronic Health Conditions (GEN), Face Coverings (Masks) and COVID-19 (GEN) Additional Instructions: 1. Appointment with Dr. Daugherty/his partner in 1-2 weeks; 2. Return to clinic or hospital sooner if needed; 3. Consider meals on wheels. Activity Level: No Restrictions and Activity as Tolerated Discharge Diet: Heart Healthy (2 gm sodium, low fat) Follow Up Appointments: Chucho Daugherty MD [Primary Care Provider] - 09/09/22 9:15 am Forms: [employer] Info Instructions
== END 2022-09-02 14:00 | disposition home or self-care (01) ==
LOC: ED 21:48 → MEDSURG 22:15
PROVIDERS: Internal Medicine; Admitting Provider Family Medicine; Emergency Provider Family Medicine; PCP Family Medicine; Visit Provider Family Medicine
DX: U07.1 COVID-19 (principal); R53.1 Weakness; R55 Syncope and collapse; I25.10 Atherosclerotic heart disease of native coronary artery without angina pectoris; I10 Essential (primary) hypertension; K59.09 Other constipation; E86.0 Dehydration; R32 Unspecified urinary incontinence; Z87.891 Personal history of nicotine dependence; Z66 Do not resuscitate; Z95.1 Presence of aortocoronary bypass graft; M79.7 Fibromyalgia; Z79.82 Long term (current) use of aspirin; E78.5 Hyperlipidemia, unspecified; Z90.710 Acquired absence of both cervix and uterus; Z96.659 Presence of unspecified artificial knee joint
CPT/HCPCS: 36415; 71045; 80053; 83605; 83880; 84132; 84443; 84484; 85025; 86140; 87040; 87502; 87634; 87635; 93005; 94761; 96361; 96365; 96366; 96372; 97116; 97161; 97165; 97535; 99284; 99285; G0378; A9270; G0379; J1650; J7050; J7120

== ENCOUNTER 2022-09-14 08:02 | Outpatient (RCR) | payer SELFPAY | END 2023-09-12 21:18 | disposition home or self-care (01) | LOC: MOW 08:02 | PROVIDERS: PCP Family Medicine; Visit Provider Family Medicine | DX: Z76.0 Encounter for issue of repeat prescription (principal) | CPT/HCPCS: S5170 ==

== ENCOUNTER 2022-11-08 17:40 | Emergency (ER) | payer MEDICARE, BC, SELFPAY ==
[2022-11-08 17:47] VITALS: BP 189/82; PULSE 82; RESP 16; TEMP 36.3; O2SAT 98
--- NOTE | 2022-11-08 18:04 | ED.GENADULT ---
HPI - General Adult General Time Seen by Provider: 18:04 Date Seen: 11/08/22 Chief complaint: High Blood Pressure Stated complaint: Very High Blood pressure Time Seen by Provider: 11/08/22 18:03 Source: patient and RN notes reviewed Mode of arrival: ambulatory Limitations: no limitations History of Present Illness HPI narrative: Patient is a very pleasant 87-year-old female accompanied by family member coming into the ER with concern of elevated blood pressure. Patient had a 4 vessel bypass in 2019 and has been working with Cardiology on her hypertension. She states Cardiology turned her back over to Dr. Daugherty. She has been monitoring her blood pressures. She is on amlodipine 10 mg daily, metoprolol tartrate 100 mg twice a day and lisinopril 30 mg daily. She states she initially started on lisinopril 5 mg a while back in the gas systems worker has moved her up to 30 mg. She has been on that a while. She does do meals on wheels. She does admit that she had a 3rd of a [employer] yesterday which did have lunch in meet on it. Then for dinner she had some soup. We did review that sodium loading in food can cause some fluctuation in blood pressures. She notes there is significant family history of coronary artery disease and hypertension. She has a sister that ended up on 6 medications. She has her blood pressure monitoring here and has been 120s to 150s over 60s to upper 80s. She took a nap this afternoon and when she woke up took her blood pressure. It was 191/97 at 5:05 p.m. 5 15, was 186/94 and 520 was 196/95. She started feeling some heaviness, felt flushed, just felt like she could not catch her breath and kept yawning. Just felt like she could not take a full breath. No headache, no neurologic changes. Related Data Home Medications Medication Instructions Recorded Confirmed acetaminophen 500 mg tablet 500 mg PO Q4H PRN 05/15/22 08/31/22 alendronate 70 mg tablet (Fosamax) 70 mg PO QWEEK 05/15/22 08/31/22 ascorbic acid (vitamin C) 500 mg 500 mg PO DAILY 05/15/22 08/31/22 tablet aspirin 81 mg tablet,delayed 81 mg PO DAILY 05/15/22 08/31/22 release benzonatate 200 mg capsule 200 mg PO TID PRN 05/15/22 09/01/22 cholecalciferol (vitamin D3) 25 1,000 unit PO DAILY 05/15/22 08/31/22 mcg (1,000 unit) tablet melatonin 3 mg capsule 3 mg PO HS PRN 05/15/22 09/01/22 metoprolol tartrate 100 mg tablet 100 mg PO BID 05/15/22 08/31/22 multivitamin with minerals 1 tab PO DAILY 05/15/22 09/01/22 (Multiple Vitamin-Minerals tablet) rosuvastatin 20 mg tablet 20 mg PO HS 05/15/22 09/01/22 zinc sulfate 50 mg zinc (220 mg) 50 mg PO DAILY 05/15/22 08/31/22 capsule amlodipine 10 mg tablet 10 mg PO DAILY 09/01/22 09/01/22 clobetasol 0.05 % topical ointment 1 applic topical Q7D 09/01/22 09/01/22 inulin-sorbitol 2 gram chewable 1 tab PO DAILY 09/01/22 09/01/22 tablet (Fiber Supplement (inulin)) lisinopril 30 mg tablet 30 mg PO DAILY 09/01/22 09/01/22 sennosides 8.6 mg-docusate sodium 1 tab-cap PO DAILY 09/01/22 09/01/22 50 mg tablet (Docuzen) Previous Rx's Medication Instructions Recorded guaifenesin 1,200 mg tablet, 1,200 mg PO BID #10 tabs 09/02/22 extended release 12 hr (Mucinex) lisinopril 40 mg tablet 40 mg PO DAILY #30 tabs 11/08/22 Allergies Allergy/AdvReac Type Severity Reaction Status Date / Time No Known Allergies Allergy Unknown Unknown Uncoded 08/14/22 08:41 Review of Systems Status of ROS: Reports: 6 or more systems reviewed and unremarkable except as noted in History and below [facility] Medical History (Updated 11/08/22 @ 19:59 by Dee Welch MD) Cholelithiasis with cholecystitis Coronary artery disease Essential hypertension Fibromyalgia Hyperlipidemia Lichen sclerosus Malignant neoplasm of skin Osteoarthritis Osteopenia Polyp of colon Rectocele Stress incontinence in female Vaginal pessary present Vaginal vault prolapse Surgical History (Updated 08/31/22 @ 22:22 by Darshana Delgado MD) H/O: hysterectomy History of tonsillectomy Hx of CABG Total knee replacement status Social History Highest level of school completed/degree received: high school graduate Smoking Status: Former smoker Do you use any of these nicotine containing products: None Second hand tobacco smoke exposure: No How often do you have a drink containing alcohol: never AUDIT-C Alcohol total score: 0 Non-prescribed substance use: denies use Caffeine: Yes (Coffee) service: No Exam Const: Vital Signs, click to edit/add: Vital Signs - 24 hr 11/08/22 17:47 11/08/22 19:13 11/08/22 18:19 Temperature 97.3 F L Pulse Rate [Left P ulse Oximeter] 82 67 Respiratory Rate 16 16 Blood Pressure [Ri ght Upper Arm] 189/82 H 166/75 H Pulse Oximetry 98 98 100 Oxygen Delivery Me thod Room Air Room Air 11/08/22 19:39 Temperature Pulse Rate [Left P ulse Oximeter] 67 Respiratory Rate 16 Blood Pressure [Ri ght Upper Arm] 168/86 H Pulse Oximetry 98 Oxygen Delivery Me thod Room Air Documenting provider has reviewed patient's vital signs: yes Common normals: no apparent distress, average body habitus, oriented x3, no limitations, healthy appearing, alert and well nourished General appearance: cooperative, comfortable, well kempt and well developed HENMT: Common normals: normocephalic, head/scalp atraumatic and hearing grossly normal bilaterally Head and scalp: normocephalic and atraumatic Eye: Common normals: PERRL, EOMs intact bilaterally, conjunctivae normal and no scleral icterus Conjunctiva: conjunctiva(e) normal Pupil: PERRL Neck & C-Spine: Common normals: full ROM, no lymphadenopathy, supple, no meningeal signs, no JVD and thyroid normal Thyroid: thyroid normal Resp: Common normals: normal respiratory effort, no retractions, no use of accessory muscles and clear to auscultation bilaterally Effort & inspection: able to speak in complete sentences Auscultation: clear to auscultation bilaterally Cardio: Common normals: no JVD, regular rate, regular rhythm, S1 normal heart sound, S2 normal heart sound, no gallops, no clicks and no murmurs Rate: regular rate Rhythm: regular rhythm Heart sounds: S1 normal and S2 normal GI: Common normals: Normal to inspection, nondistended, normoactive bowel sounds present, soft to palpation, non-tender, no hepatosplenomegaly and no masses Palpation: soft and no hepatosplenomegaly Extremity: Common normals: no calf tenderness and no pedal edema Neuro: Common normals: oriented x3, CN's II-XII intact bilaterally, moves all extremities, no focal motor deficits, no sensory deficits noted and gait normal Sensorium/orientation: alert Meningeal signs: no meningeal signs Speech: speech normal Psych: Appearance: well kempt Course Course Hospital Course: Will monitor patient here, obtain EKG and some basic labs including a troponin. She did not have any chest symptoms until she knew her blood pressure was elevated and took it 3 times apart every 5 minutes. Thus I do think there could be a component of anxiety as to her symptoms but not necessarily that the blood pressure was elevated. Reevaluation(s) Reevaluation #1: Patient just ambulated from her bed in stab 2 to the bathroom and back without any difficulty. Awaiting her labs from her blood draw, her EKG to be done and her portable chest x-ray. We will see where her blood pressure is currently, she has 30 mg tablets of lisinopril at home. Discussed with her and her daughter that I might give her extra 10 mg of lisinopril and have her move up to 40 mg daily depending on what I am seeing here. Time: 18:38 Reevaluation #2: Patient blood pressure at this time is 166/75. In review of her most recent blood pressures, she could stand for improvement. Will give her 10 mg of lisinopril tonight and then increase her lisinopril to 40 mg with follow-up with her primary care provider. She is in agreement with this plan. We will do a follow-up troponin shortly here and if normal, discharge to home. Time: 19:15 Vital Signs Vital signs: Initial Vital Signs Temperature 97.3 F L 11/08/22 17:47 Temperature Source Temporal Artery Scan 11/08/22 17:47 Pulse Rate 82 11/08/22 17:47 Pulse Rhythm 11/08/22 17:47 Respiratory Rate 16 11/08/22 17:47 Blood Pressure 189/82 H 11/08/22 17:47 Blood Pressure Mean 117 11/08/22 17:47 Blood Pressure Position Sitting 11/08/22 17:47 Pulse Oximetry 98 11/08/22 17:47 Oxygen Delivery Method 11/08/22 17:47 Vital Signs Temperature 97.3 F L 11/08/22 17:47 Pulse Rate 82 11/08/22 17:47 Respiratory Rate 16 11/08/22 17:47 Blood Pressure 189/82 H 11/08/22 17:47 Pulse Oximetry 98 11/08/22 17:47 Oxygen Delivery Method 11/08/22 17:47 Temperature 97.3 F L 11/08/22 17:47 Pulse Rate 67 11/08/22 19:39 Respiratory Rate 16 11/08/22 19:39 Blood Pressure 168/86 H 11/08/22 19:39 Pulse Oximetry 98 11/08/22 19:39 Oxygen Delivery Method 11/08/22 19:39 Medical Decision Making Lab Data Lab results reviewed: Yes I reviewed the patient's lab results Labs: Lab Results 11/08/22 11/08/22 11/08/22 Range/Units 18:20 18:30 18:30 WBC 5.40 (4.50-11.00) K/uL RBC 4.74 (4.00-5.20) m/uL Hgb 14.6 (12.0-16.0) gm/dL Hct 44.2 (33.0-51.0) % MCV 93 (80-100) fL MCH 31 (26-34) pg MCHC 33 (32-36) gm/dL RDW Coeff of Sean 12.7 (11.5-15.5) % Plt Count 170 (140-440) K/uL Neut % (Auto) 71.1 (42.0-72.0) % Lymph % (Auto) 21.5 (20-44) % [place] % (Auto) 6.3 (0.0-11.0) % Eos % (Auto) 0.7 (0.0-7.0) % Baso % (Auto) 0.4 (0.0-3.0) % Neut # (Auto) 3.84 (1.7-7.0) K/uL Lymph # (Auto) 1.16 (0.90-2.90) K/uL [place] # (Auto) 0.30 (0.00-0.90) K/UL Eos # (Auto) 0.04 (0.00-0.50) K/uL Baso # (Auto) 0.02 (0.00-0.30) K/uL Sodium 139 (135-149) mmol/L Potassium 3.7 (3.6-5.1) mmol/L Chloride 104 (96-114) mmol/L Carbon Dioxide 31 (20-32) mmol/L BUN 13 (7-30) mg/dL Creatinine 0.7 (0.5-1.5) mg/dL Estimated GFR 85 ml/min Glucose 108 (60-115) mg/dL Calcium 9.3 (8.4-10.6) mg/dL Total Bilirubin 0.6 (0.1-1.5) mg/dL AST 24 (12-35) U/L ALT 22 (4-35) U/L Alkaline Phosphatase 52 (40-150) U/L Total Protein 7.2 (6.0-8.3) g/dL Albumin 4.2 (3.3-5.0) g/dL POC Troponin I 0.00 L (0.01-0.04) ng/ml 11/08/22 Range/Units 19:38 WBC (4.50-11.00) K/uL RBC (4.00-5.20) m/uL Hgb (12.0-16.0) gm/dL Hct (33.0-51.0) % MCV (80-100) fL MCH (26-34) pg MCHC (32-36) gm/dL RDW Coeff of Sean (11.5-15.5) % Plt Count (140-440) K/uL Neut % (Auto) (42.0-72.0) % Lymph % (Auto) (20-44) % [place] % (Auto) (0.0-11.0) % Eos % (Auto) (0.0-7.0) % Baso % (Auto) (0.0-3.0) % Neut # (Auto) (1.7-7.0) K/uL Lymph # (Auto) (0.90-2.90) K/uL [place] # (Auto) (0.00-0.90) K/UL Eos # (Auto) (0.00-0.50) K/uL Baso # (Auto) (0.00-0.30) K/uL Sodium (135-149) mmol/L Potassium (3.6-5.1) mmol/L Chloride (96-114) mmol/L Carbon Dioxide (20-32) mmol/L BUN (7-30) mg/dL Creatinine (0.5-1.5) mg/dL Estimated GFR ml/min Glucose (60-115) mg/dL Calcium (8.4-10.6) mg/dL Total Bilirubin (0.1-1.5) mg/dL AST (12-35) U/L ALT (4-35) U/L Alkaline Phosphatase (40-150) U/L Total Protein (6.0-8.3) g/dL Albumin (3.3-5.0) g/dL POC Troponin I 0.00 L (0.01-0.04) ng/ml Imaging Data Chest x-ray: Attestation: I have reviewed the pertinent imaging results. Radiologist's impression: Patient: SANDY MARMOLEJO Facility:?[facility] Patient ID:?[id number] Site Patient ID:?[id number]. Site :?[id number] Study:?XRay Chest PORTABLE-11/08/2022 6:51:42 PM Ordering Physician:?Yuri Price Final Report: INDICATION: Chest discomfort TECHNIQUE: Chest 1 view COMPARISON: 08/1922 FINDINGS: Cardiovascular and mediastinum: Postop changes to the mediastinum. Vascular calcifications are present. Slight tortuosity of the aorta. Cardiomegaly. Lungs and pleural spaces: Lungs are clear. No sign of infiltrate or mass. No sign of pleural effusion. No pneumothorax. Bones and soft tissues: No significant findings. IMPRESSION: No acute findings. Dictated by Michele Lopez MD @ 11/08/2022 7:24:54 PM (Electronic Signature) ECG Data Attestation: I personally reviewed and interpreted this ECG as follows: (Sinus rhythm, 71 beats per minute. Premature atrial complex seen. Flipped T-waves V1 V2 without any ST segment change. No definitive ischemia.) Prior ECG tracings: not available for review Interpretation: EKG timed 1952 p.m. shows normal sinus rhythm, 68 beats per minute. No significant change from previous. Continued flipped T-waves V1 V2 without any concerning ischemic change. Critical Care Time Critical Care Time Critical Care Time: No Discharge Plan Discharge Clinical Impression: Hypertension Patient Disposition: Home, Self-Care Condition: Stable Instructions: DASH Eating Plan (ED), Hypertension (ED) Additional Instructions: Start 40 mg lisinopril daily instead of 30 mg. Continue on your other medicines. Try to minimize sodium in your diet. Get scheduled for a follow-up with your primary care provider or someone in clinic this week for recheck. Activity Level: Activity as Tolerated Discharge Diet: Heart Healthy (2 gm sodium, low fat) Prescriptions: New lisinopril 40 mg tablet 40 mg PO DAILY Qty: 30 0RF No Action melatonin 3 mg capsule 3 mg PO HS PRN cholecalciferol (vitamin D3) 25 mcg (1,000 unit) tablet 1,000 unit PO DAILY zinc sulfate 50 mg zinc (220 mg) capsule 50 mg PO DAILY rosuvastatin 20 mg tablet 20 mg PO HS ascorbic acid (vitamin C) 500 mg tablet 500 mg PO DAILY acetaminophen 500 mg tablet 500 mg PO Q4H PRN aspirin 81 mg tablet,delayed release (DR/EC) 81 mg PO DAILY metoprolol tartrate 100 mg tablet 100 mg PO BID alendronate [Fosamax] 70 mg tablet 70 mg PO QWEEK Multiple Vitamin-Minerals Tablet 1 tab PO DAILY benzonatate 200 mg capsule 200 mg PO TID PRN amlodipine 10 mg tablet 10 mg PO DAILY Label Comments: TAKE 1 TABLET (10 MG) BY MOUTH ONCE DAILY. lisinopril 30 mg tablet 30 mg PO DAILY clobetasol 0.05 % ointment 1 applic topical Q7D Rx Instructions: APPLY SPARINGLY TO AFFECTED AREA Fiber Supplement (inulin) 2 gram tablet,chewable 1 tab PO DAILY sennosides-docusate sodium [Docuzen] 8.6-50 mg tablet 1 tab-cap PO DAILY Mucinex 1,200 mg tablet extended release 12hr 1,200 mg PO BID Qty: 10 0RF Follow Up/Referrals: Chucho Daugherty MD [Primary Care Provider] - Stand Alone Forms: [facility] Info Instructions
[2022-11-08 18:19] VITALS: O2SAT 100
--- NOTE | 2022-11-08 18:19 | CRLHL7_ITS ---
For Patients: As a result of the Cures Act, medical imaging exams and procedure reports are released immediately into your electronic medical record. You may view this report before your referring provider. If you have questions, please contact your health care provider. INDICATION: Chest discomfort TECHNIQUE: Chest 1 view COMPARISON: 08/1922 FINDINGS: Cardiovascular and mediastinum: Postop changes to the mediastinum. Vascular calcifications are present. Slight tortuosity of the aorta. Cardiomegaly. Lungs and pleural spaces: Lungs are clear. No sign of infiltrate or mass. No sign of pleural effusion. No pneumothorax. Bones and soft tissues: No significant findings. IMPRESSION: No acute findings. Dictated by Michele Lopez MD @ 11/08/2022 7:24:54 PM (Electronically Signed)
[2022-11-08 18:35] LABS: Basophils Absolute Auto 0.02 K/uL (0.00-0.30); Basophils Percent Auto 0.4 % (0.0-3.0); Eosinophils Absolute Auto 0.04 K/uL (0.00-0.50); Eosinophils Percent Auto 0.7 % (0.0-7.0); Hematocrit 44.2 % (33.0-51.0); Hemoglobin* 14.6 gm/dL (12.0-16.0); Lymphocytes Absolute Auto 1.16 K/uL (0.90-2.90); Lymphocytes Percent Auto 21.5 % (20-44); Mean Corpuscular HGB Conc 33 gm/dL (32-36); Mean Corpuscular Hemoglobin 31 pg (26-34); Mean Corpuscular Volume 93 fL (80-100); Monocytes Percent Auto 6.3 % (0.0-11.0); Neutrophils Absolute Auto 3.84 K/uL (1.7-7.0); Neutrophils Percent Auto 71.1 % (42.0-72.0); Platelet Count* 170 K/uL (140-440); RDW Coefficient of Variation % 12.7 % (11.5-15.5); Red Blood Count 4.74 m/uL (4.00-5.20)
[2022-11-08 18:36] LABS: Slide Review Reflex No
[2022-11-08 18:48] LABS: Albumin* 4.2 g/dL (3.3-5.0)
[2022-11-08 18:49] LABS: Chloride* 104 mmol/L (96-114); Potassium* 3.7 mmol/L (3.6-5.1); Sodium* 139 mmol/L (135-149)
[2022-11-08 18:51] LABS: Bilirubin Total* 0.6 mg/dL (0.1-1.5); Carbon Dioxide* 31 mmol/L (20-32); Creatinine* 0.7 mg/dL (0.5-1.5); Estimated Glomerular Filt Rate 85 ml/min
[2022-11-08 18:52] LABS: Alanine Aminotransferase* 22 U/L (4-35); Alkaline Phosphatase* 52 U/L (40-150); Aspartate Amino Transferase* 24 U/L (12-35); Blood Urea Nitrogen* 13 mg/dL (7-30); Calcium* 9.3 mg/dL (8.4-10.6); Glucose* 108 mg/dL (60-115); Total Protein* 7.2 g/dL (6.0-8.3)
[2022-11-08 19:13] VITALS: BP 166/75; PULSE 67; RESP 16; O2SAT 98
[2022-11-08 19:39] VITALS: BP 168/86; PULSE 67; RESP 16; O2SAT 98
[2022-11-08] MEDS: lisinopriL 10 MG TABLET PO (19:58)
== END 2022-11-08 20:18 | disposition home or self-care (01) ==
PROVIDERS: Emergency Provider Family Medicine; PCP Family Medicine
DX: I10 Essential (primary) hypertension (principal)
CPT/HCPCS: 36415; 71045; 80053; 84484; 85025; 93005; 94761; 99284; 99285; A9270

== ENCOUNTER 2023-08-15 14:17 | Emergency (ER) | payer MEDICARE, BC, SELFPAY ==
[2023-08-15] VITALS (25 sets, daily range): BP systolic 104–151; BP diastolic 62–78; PULSE 88–122; RESP 20; TEMP 35.7; O2SAT 92–99; BMI 26.6
--- NOTE | 2023-08-15 14:38 | ED_ITS ---
HPI - General Adult General Chief complaint: Hypertension Stated complaint: High blood pressure and heart rate Time Seen by Provider: 08/15/23 14:20 History of Present Illness HPI narrative: Pt reports High blood pressures for the last few days and rapid HR. Pt has seen cardiology recently, has hx of triple bypass. 87-year-old woman presenting to the emergency department with concern of high blood pressures. Saw cardiology recently and understands that she was recomm ended to monitor her blood pressures. She is measured her blood pressure least 6 times this morning. Also recording pulses on the piece of paper she shows of upper 90s to low 100s. Worried about potentially having a stroke. No headache no nausea no visual disturbances. No numbness or focal weakness. Later as noted I am able to see these recorded blood pressures which aren't particularly elevated, certainly under 130 systolic, but has been slightly tachycardic in her recordings over the course of today. Feels a pressure in her throat gestures to the suprasternal notch. This has been intermittent over some time. Not associated with exertion necessarily. Related Data Home Medications Medication Instructions Recorded Confirmed acetaminophen 500 mg tablet 500 mg PO Q4H PRN 05/15/22 07/19/23 alendronate 70 mg tablet (Fosamax) 70 mg PO QWEEK 05/15/22 07/19/23 ascorbic acid (vitamin C) 500 mg 500 mg PO DAILY 05/15/22 07/19/23 tablet aspirin 81 mg tablet,delayed 81 mg PO DAILY 05/15/22 07/19/23 release cholecalciferol (vitamin D3) 25 1,000 unit PO DAILY 05/15/22 07/19/23 mcg (1,000 unit) tablet melatonin 3 mg capsule 3 mg PO HS PRN 05/15/22 07/19/23 metoprolol tartrate 100 mg tablet 100 mg PO BID 05/15/22 07/19/23 multivitamin with minerals 1 tab PO DAILY 05/15/22 07/19/23 (Multiple Vitamin-Minerals tablet) rosuvastatin 20 mg tablet 20 mg PO HS 05/15/22 07/19/23 zinc sulfate 50 mg zinc (220 mg) 50 mg PO DAILY 05/15/22 07/19/23 capsule amlodipine 10 mg tablet 10 mg PO DAILY 09/01/22 07/19/23 inulin-sorbitol 2 gram chewable 1 tab PO DAILY 09/01/22 07/19/23 tablet (Fiber Supplement (inulin)) docusate sodium 100 mg capsule 100 mg PO QDAY 11/10/22 07/19/23 hydrochlorothiazide 12.5 mg tablet 12.5 mg PO QDAY 03/15/23 07/19/23 lisinopril 40 mg tablet 40 mg PO . 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 - Female genital prolapse, unspecified (ICD-10) Lichen sclerosus ?L90.0 - Lichen sclerosus et atrophicus (ICD-10) Essential hypertension ?I10 - Essential (primary) hypertension (ICD-10) Vaginal pessary present ?Z96.0 - Presence of urogenital implants (ICD-10) Osteopenia ?M85.80 - Other specified disorders of bone density and structure, unspecified site (ICD-10) Stress incontinence in female ?N39.3 - Stress incontinence (female) (male) (ICD-10) Rectocele ?N81.6 - Rectocele (ICD-10) Polyp of colon ?K63.5 - Polyp of colon (ICD-10) Osteoarthritis ?M19.90 - Unspecified osteoarthritis, unspecified site (ICD-10) Malignant neoplasm of skin ?C44.90 - Unspecified malignant neoplasm of skin, unspecified (ICD-10) Hyperlipidemia ?E78.5 - Hyperlipidemia, unspecified (ICD-10) Fibromyalgia ?M79.7 - Fibromyalgia (ICD-10) Coronary artery disease ?I25.10 - Atherosclerotic heart disease of [place] coronary artery without angina pectoris (ICD-10) Cholelithiasis with cholecystitis ?K80.10 - Calculus of gallbladder with chronic cholecystitis without obstruction (ICD-10) Surgical History History of tonsillectomy ?Z90.89 - Acquired absence of other organs (ICD-10) H/O: hysterectomy ?Z90.710 - Acquired absence of both cervix and uterus (ICD-10) Total knee replacement status ?Z96.659 - Presence of unspecified artificial knee joint (ICD-10) Hx of CABG ?Z95.1 - Presence of aortocoronary bypass graft (ICD-10) Social History Highest level of school completed/degree received: high school graduate Smoking Status: Former smoker Do you use any of these nicotine containing products: None Second hand tobacco smoke exposure: No How often do you have a drink containing alcohol: never AUDIT-C Alcohol total score: 0 Non-prescribed substance use: denies use Caffeine: Yes (Coffee) service: No Exam Narrative: Exam Narrative: Accompanied here by daughter. Pleasant. Carefully casually groomed. Mildly anxious. Apparently less talkative than usual. Breathing easily lungs are clear. There is more than mild kyphosis of the upper thoracic spine. Maybe mildly tender in the right trapezial musculature/paraspinal musculature. She is swallowing without apparent difficulty. Trachea is midline. There is no JVD. Neck is supple. Oropharynx is unremarkable. Cranial nerves 2-12 intact. Pupils are 3 mm in equal. Heart is in an elevated rate but regular rhythm. No murmur rub or gallop. Abdomen is soft and nontender. Extremities are well perfused without edema. Good strength throughout. No sensory deficit apparent. Const: Vital Signs, click to edit/add: Vital Signs - 24 hr 08/15/23 14:26 08/15/23 14:30 08/15/23 14:31 Temperature 96.3 F L Pulse Rate 108 H 101 H Pulse Rate [Pulse Oximeter] 122 H Respiratory Rate 20 Blood Pressure 151/65 H 147/78 H Blood Pressure [Ri ght Upper Arm] 150/77 H Pulse Oximetry 97 97 98 Oxygen Delivery Me thod Room Air 08/15/23 14:32 08/15/23 14:40 08/15/23 14:50 Temperature Pulse Rate 105 H 107 H 102 H Pulse Rate [Pulse Oximeter] Respiratory Rate Blood Pressure Blood Pressure [Ri ght Upper Arm] Pulse Oximetry 97 97 96 Oxygen Delivery Me thod 08/15/23 14:58 08/15/23 15:00 08/15/23 15:02 Temperature Pulse Rate 93 93 Pulse Rate [Pulse Oximeter] Respiratory Rate Blood Pressure 137/62 Blood Pressure [Ri ght Upper Arm] Pulse Oximetry 97 97 97 Oxygen Delivery Me thod 08/15/23 15:03 08/15/23 15:10 08/15/23 15:20 Temperature Pulse Rate 88 93 93 Pulse Rate [Pulse Oximeter] Respiratory Rate Blood Pressure Blood Pressure [Ri ght Upper Arm] Pulse Oximetry 96 96 94 Oxygen Delivery Me thod 08/15/23 15:30 08/15/23 15:31 08/15/23 15:32 Temperature Pulse Rate 91 95 89 Pulse Rate [Pulse Oximeter] Respiratory Rate Blood Pressure 140/63 H Blood Pressure [Ri ght Upper Arm] Pulse Oximetry 95 95 99 Oxygen Delivery Me thod 08/15/23 15:40 08/15/23 15:50 08/15/23 16:00 Temperature Pulse Rate 93 90 90 Pulse Rate [Pulse Oximeter] Respiratory Rate Blood Pressure Blood Pressure [Ri ght Upper Arm] Pulse Oximetry 95 97 99 Oxygen Delivery Me thod 08/15/23 16:01 08/15/23 16:02 08/15/23 16:10 Temperature Pulse Rate 93 95 Pulse Rate [Pulse Oximeter] Respiratory Rate Blood Pressure 104/71 Blood Pressure [Ri ght Upper Arm] Pulse Oximetry 98 97 Oxygen Delivery Me thod 08/15/23 16:20 08/15/23 16:30 08/15/23 16:31 Temperature Pulse Rate 95 92 100 Pulse Rate [Pulse Oximeter] Respiratory Rate Blood Pressure 148/72 H Blood Pressure [Ri ght Upper Arm] Pulse Oximetry 92 96 97 Oxygen Delivery Me thod 08/15/23 16:40 Temperature Pulse Rate 92 Pulse Rate [Pulse Oximeter] Respiratory Rate Blood Pressure Blood Pressure [Ri ght Upper Arm] Pulse Oximetry 93 Oxygen Delivery Me thod Documenting provider has reviewed patient's vital signs: yes Course Vital Signs Vital signs: Initial Vital Signs Temperature 96.3 F L 08/15/23 14:26 Temperature Source Temporal Artery Scan 08/15/23 14:26 Pulse Rate 122 H 08/15/23 14:26 Pulse Rhythm Irregular 12/03/23 14:26 Respiratory Rate 20 08/15/23 14:26 Respiratory Effort Normal 08/15/23 14:26 Respiratory Depth Normal 08/15/23 14:26 Respiratory Pattern Normal 08/15/23 14:26 Blood Pressure 150/77 H 08/15/23 14:26 Blood Pressure Mean 101 08/15/23 14:26 Blood Pressure Position Sitting 08/15/23 14:26 Pulse Oximetry 97 08/15/23 14:26 Oxygen Delivery Method Room Air 08/15/23 14:26 Vital Signs Temperature 96.3 F L 08/15/23 14:26 Pulse Rate 122 H 08/15/23 14:26 Respiratory Rate 20 08/15/23 14:26 Blood Pressure 150/77 H 08/15/23 14:26 Pulse Oximetry 97 08/15/23 14:26 Oxygen Delivery Method Room Air 08/15/23 14:26 Temperature 96.3 F L 08/15/23 14:26 Pulse Rate 92 08/15/23 16:40 Respiratory Rate 20 08/15/23 14:26 Blood Pressure 148/72 H 08/15/23 16:31 Pulse Oximetry 93 08/15/23 16:40 Oxygen Delivery Method Room Air 08/15/23 14:26 Medications Administered Medications: Discontinued Medications Generic Name Dose Route Start Last Admin Trade Name Alvarez PRN Reason Stop Dose Admin Lorazepam 0.5 mg 08/15/23 14:58 08/15/23 15:13 Lorazepam 0.5 Mg Tablet PO 08/15/23 14:59 0.5 mg ONCE ONE Administration Medical Decision Making MDM Narrative Medical decision making narrative: Initial EKG I received does have some PACs. These appear to be asymptomatic during our conversation. I do not see any evidence of cerebrovascular event here. I suspect anxiety playing not in significant role here in symptoms in blood pressure but particularly heart rate readings. I think would be prudent to check labs though and chemistries. I did offer medication for what I am proceeding anxiety and she did agree to take that. Was given half a mg oral lorazepam. No events on monitor other than mentioned above. Overall is improved and the sensation in her throat has faded. I think thought maybe this would be related to some tension in the upper back although perhaps at also represents anxiety. No evidence of ischemic cardiovascular event. Clarifying again her concerns of the blood pressure it appears that she may have been misinterpreting the tachycardia as a high pressure necessitating more urgent follow-up. Is no longer tachycardic on assessment here. At this point would offer reassurance. Labs are reassuring. See patient discharge plan Lab Data Lab results reviewed: Yes I reviewed the patient's lab results Labs: Lab Results 08/15/23 08/15/23 Range/Units 14:59 15:11 WBC 8.38 (4.50-11.00) K/uL RBC 4.21 (4.00-5.20) m/uL Hgb 13.1 (12.0-16.0) gm/dL Hct 39.9 (33.0-51.0) % MCV 95 (80-100) fL MCH 31 (26-34) pg MCHC 33 (32-36) gm/dL RDW Coeff of Sean 12.6 (11.5-15.5) % Plt Count 171 (140-440) K/uL Neut % (Auto) 84.9 H (42.0-72.0) % Lymph % (Auto) 8.7 L (20-44) % [place] % (Auto) 5.8 (0.0-11.0) % Eos % (Auto) 0.2 (0.0-7.0) % Baso % (Auto) 0.2 (0.0-3.0) % Neut # (Auto) 7.10 H (1.7-7.0) K/uL Lymph # (Auto) 0.70 L (0.90-2.90) K/uL [place] # (Auto) 0.50 (0.00-0.90) K/UL Eos # (Auto) 0.02 (0.00-0.50) K/uL Baso # (Auto) 0.02 (0.00-0.30) K/uL Abs Immat Gran (auto) 0.02 (0.00-0.30) K/uL Imm/Tot Granulo (auto) 0.2 % Sodium 133 L (135-149) mmol/L Potassium 3.8 (3.6-5.1) mmol/L Chloride 98 (96-114) mmol/L Carbon Dioxide 29 (20-32) mmol/L Anion Gap 6 L (7-15) mEq/L BUN 15 (7-30) mg/dL Creatinine 0.7 (0.5-1.5) mg/dL Estimated Creat Clear 34.02 Estimated GFR 85 ml/min Glucose 135 H (60-115) mg/dL Calcium 9.3 (8.4-10.6) mg/dL Magnesium 2.5 (1.5-2.6) mg/dL Troponin I < 0.01 L (0.01-0.04) ng/mL C-Reactive Protein 0.8 (0.5-1.0) mg/dL NT-Pro-B Natriuret Pep 302 pg/mL POC Troponin I 0.00 L (0.01-0.04) ng/ml ECG Data Attestation: I personally reviewed and interpreted this ECG as follows: (Sinus tachycardia at 107. PACs are noted.) Discharge Plan Discharge Clinical Impression: Worried well, Tachycardia, Premature atrial contraction Patient Disposition: Home w/ Parent or Adult Condition: Improved Additional Instructions: Objectively you seem well. I do not see any reason for you to restrict your activities at this time. Stay well-hydrated. Try to get quality and regular sleep. When checking blood pressures, try not to check more than once a day and check after 5-15 minutes of relaxation. Return for persistent increasing chest pain, shortness of breath, worsening lightheadedness, new and focal weakness. Your blood pressures you showed here today in and of themselves are not likely to contribute to any stroke. Activity Level: No Restrictions Discharge Diet: Regular Prescriptions: No Action melatonin 3 mg capsule 3 mg PO HS PRN cholecalciferol (vitamin D3) 25 mcg (1,000 unit) tablet 1,000 unit PO DAILY zinc sulfate 50 mg zinc (220 mg) capsule 50 mg PO DAILY rosuvastatin 20 mg tablet 20 mg PO HS ascorbic acid (vitamin C) 500 mg tablet 500 mg PO DAILY acetaminophen 500 mg tablet 500 mg PO Q4H PRN aspirin 81 mg tablet,delayed release (DR/EC) 81 mg PO DAILY metoprolol tartrate 100 mg tablet 100 mg PO BID alendronate [Fosamax] 70 mg tablet 70 mg PO QWEEK Multiple Vitamin-Minerals Tablet 1 tab PO DAILY docusate sodium 100 mg capsule 100 mg PO QDAY clobetasol 0.05 % ointment 1 applic topical QDAY Qty: 45 3RF Rx Instructions: APPLY SPARINGLY TO AFFECTED AREA BID for flare ups, otherwise once or twice weekly as needed lisinopril 40 mg tablet 40 mg PO . evenings hydrochlorothiazide 12.5 mg tablet 12.5 mg PO QDAY estradiol 0.01 % (0.1 mg/gram) cream 0.25 appful vaginal QWEEK Qty: 42.5 1RF amlodipine 10 mg tablet 10 mg PO DAILY Patient Comments: TAKE 1 TABLET (10 MG) BY MOUTH ONCE DAILY. Fiber Supplement (inulin) 2 gram tablet,chewable 1 tab PO DAILY Follow Up/Referrals: Chucho Daugherty MD [Primary Care Provider] - Stand Alone Forms: [facility] Info Instructions
[2023-08-15] MEDS: LORazepam 0.5 MG TABLET PO (15:13)
[2023-08-15 15:19] LABS: Basophils Absolute Auto 0.02 K/uL (0.00-0.30); Basophils Percent Auto 0.2 % (0.0-3.0); Eosinophils Absolute Auto 0.02 K/uL (0.00-0.50); Eosinophils Percent Auto 0.2 % (0.0-7.0); Hematocrit 39.9 % (33.0-51.0); Hemoglobin* 13.1 gm/dL (12.0-16.0); Immature Granulocytes Abs Auto 0.02 K/uL (0.00-0.30); Immature Granulocytes Pct Auto 0.2 %; Lymphocytes Percent Auto 8.7 % (20-44); Mean Corpuscular HGB Conc 33 gm/dL (32-36); Mean Corpuscular Hemoglobin 31 pg (26-34); Mean Corpuscular Volume 95 fL (80-100); Monocytes Percent Auto 5.8 % (0.0-11.0); Neutrophils Percent Auto 84.9 % (42.0-72.0); Platelet Count* 171 K/uL (140-440); RDW Coefficient of Variation % 12.6 % (11.5-15.5); Red Blood Count 4.21 m/uL (4.00-5.20); White Blood Count* 8.38 K/uL (4.50-11.00)
[2023-08-15 15:21] LABS: Slide Review Reflex No
[2023-08-15 15:30] LABS: Chloride* 98 mmol/L (96-114); Potassium* 3.8 mmol/L (3.6-5.1); Sodium* 133 mmol/L (135-149)
[2023-08-15 15:33] LABS: Creatinine* 0.7 mg/dL (0.5-1.5); Est. Creatinine Clearance* 34.02; Estimated Glomerular Filt Rate 85 ml/min
[2023-08-15 15:34] LABS: Anion Gap 6 mEq/L (7-15); Blood Urea Nitrogen* 15 mg/dL (7-30); Calcium* 9.3 mg/dL (8.4-10.6); Carbon Dioxide* 29 mmol/L (20-32); Glucose* 135 mg/dL (60-115); Magnesium* 2.5 mg/dL (1.5-2.6)
[2023-08-15 15:37] LABS: C Reactive Protein* 0.8 mg/dL (0.5-1.0)
[2023-08-15 15:46] LABS: NT Pro B Type NatriureticPept* 302 pg/mL; Troponin I* < 0.01 ng/mL (0.01-0.04)
== END 2023-08-15 17:00 | disposition home or self-care (01) ==
PROVIDERS: Emergency Provider Family Medicine; PCP Family Medicine
DX: R00.0 Tachycardia, unspecified (principal); I49.1 Atrial premature depolarization
CPT/HCPCS: 36415; 80048; 83735; 83880; 84484; 85025; 86140; 94761; 99284; A9270

== ENCOUNTER 2024-03-13 11:32 | Outpatient (CLI) | payer MEDICARE, BC, SELFPAY ==
--- OUTSIDE RECORDS SUMMARY | 2024-03-13 11:37 | XMS_ITS | Clinical Summary ---
Author Organization [facility] Address [place], [place] [address] Care Team Providers Care Chromosomal Disorders Counselor Name Role Phone Chucho Daugherty MD Primary Care Provider Allergies No known active allergies Medications Medication Sig Dispensed Refills Start Date End Date Status aspirin enteric coated 81 mg tablet Take 1 tablet by mouth once daily with a meal. 0 02/21/2013 Active multivitamin (MVI) tablet Take 1 tablet by mouth once daily. Active clobetasol 0.05% (TEMOVATE 0.05% OINTMENT) 0.05 % ointment Apply a thin layer to vaginal tissue nightly. Active melatonin 3 mg tablet Take 1 tablet by mouth at bedtime. 0 04/21/2019 Active albuterol HFA 90 mcg/actuation inhalerIndications:Whe josh INHALE 1 - 2 PUFFS BY MOUTH EVERY 4 HOURS IF NEEDED FOR SHORTNESS OF BREATH 18 g 1 12/27/2019 Active metroNIDAZOLE 0.75 % creamIndications:Rosac ea Apply topically to affected area(s) two times daily. 45 g 3 05/26/2023 Active alendronate (FOSAMAX) 70 mg tabletIndications:Oste oporosis, unspecified osteoporosis type, unspecified pathological fracture presence Take 1 Tablet (70 mg) by mouth once a week in the morning. Take on empty stomach with full glass of water. Do not lie down for 1 hr. 12 Tablet 3 05/26/2023 Active amLODIPine (NORVASC) 10 mg tabletIndications:Luis gn essential HTN Take 1 Tablet (10 mg) by mouth once daily. 90 Tablet 3 05/26/2023 Active rosuvastatin (CRESTOR) 20 mg tabletIndications:Hype rlipidemia, unspecified hyperlipidemia type Take 1 Tablet (20 mg) by mouth at bedtime. 90 Tablet 3 05/26/2023 Active metoprolol succinate (Toprol XL) 25 mg Sustained-Release tabletIndications:Krishna nary artery disease involving cachil dehe coronary artery of cachil dehe heart without angina pectoris Take 1 Tablet (25 mg) by mouth once daily. 90 Tablet 3 11/04/2023 Active lisinopriL (PRINIVIL; ZESTRIL) 20 mg tabletIndications:Luis gn essential HTN Take 1 Tablet (20 mg) by mouth once daily. 90 Tablet 3 11/29/2023 Active Active Problems Patient Care Coordination No te Formatting of this note migh t be different from the original. HF/Structural Research Eligibility Review Date: 09/18/19 The patient did not qualify for any currently enrolling studies at the time of this review. 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 Resolved Problems Problem Noted Date Diagnosed Date Resolved Date HTN (hypertension) 07/14/2022 3 Anticoagulation monitoring, INR range 2-3 04/28/2019 04/28/2021 Paroxysmal atrial fibrillation 04/13/2019 04/24/2020 Mixed stress and urge urinary incontinence 08/18/2017 04/28/2021 Adenomatous colon polyp 06/23/201704/13 Overview: Colonoscopy 06/2017 polyp repeat in 5 years Cholecystitis with cholelithiasis 08/19/2013 04/24/2020 Impaired glucose tolerance test 03/21/2014 Encounters Date Type Department Care Team Description 02/10/2024 1:15 PM CDT Office Visit [facility] [address] [place] [address] Chucho Daugherty MD Follow Up (Medication ) 02/10/2024 Travel 02/10/2024 Telephone [facility] [address] [place] [address] Chucho Daugherty MD Questions 02/10/2024 Telephone [facility] [address] [place] [address] Chucho Daugherty MD Follow Up (Pre-Med form ) 02/10/2024 Telephone [facility] [address] [place] [address] Chucho Daugherty MD Medication Management 02/07/2024 Travel from Last 3 Months Immunizations Name Administration Dates Next Due AMB INFLUENZA IIV3 (AGE 65+ YRS) PF (Flu Clinic Only) 06/30/2019 AMB Influenza, IIV3 (Age >=3 years)(Flu Clinic Only) 06/10/2012,06/26/2011,07/02/2010 Amb Influenza, Inact (High-d ose) (Flu Clinic Only) 07/07/2016 Amb Influenza, Inactivated A IIV4 (Age 65+ Years) Preserv Free 06/10/2020 COVID-19 vaccine ([employer] NTech 30mcg/0.3mL) 12YO+ BIVALENT PF, MDV 02/15/2023 COVID-19 vaccine (Pfizer-Bio NTech 30mcg/0.3mL) 12YO+ TANYA-SUCROSE PF, MDV 01/12/2022 COVID-19 vaccine (Pfizer-Bio NTech 30mcg/0.3mL) PF, MDV 06/19/2021 Influenza A (H1N1), Inactiva susie (Age >=3 Years) 09/05/2009 Influenza, High-dose Inactivated 06/24/2018,06/14,07/01/2013 Influenza, High-dose Quadriv alent Inactivated 07/03/2022,07/07/2021 Influenza, IIV3 (Age 6-35 mos) 06/26/2011 Influenza, IIV3 (Age >=3 years) 07/01/20 13,06/10/2012,07/02/2010,2008,06/27/2008,06/27/2007 Influenza, IIV4 06/26/2014 Influenza, IIV4 (=>6mos) MDV 06/24/2015 Influenza, Inactivated AIIV4 (Age 65+ Years) Preserv Free 05/26/2023 Influenza, Inactivated IIV3 (Age 65+ Years) Preserv Free 06/24/2018,05/14/2017 Pneumococcal Conj 20-valent (Prevnar 20) 09/09/2022 Pneumococcal Poly,23-Valent (Pneumovax) 08/15/2004 Pneumococcal conj 13-Valent (Prevnar 13) 07/17/2014 Td (Age >=7 Years) 08/15/2004,01/01/1994 Tdap 07/07/2021,03/10/2011 Zoster (Shingrix-RZV, recombinant) 08/22/2020, Zoster (Zostavax-ZVL, live) 03/06/2014 Family History Medical History Relation Name Comments Other Daughter severe vertigo/ r/t H1N1 flu Heart Disease Father Cancer-breast Maternal Aunt Heart Disease Mother CHF Cancer-colon Neg. Cancer-breast Sister 1 Diabetes Sister 1 Heart Disease Sister 2 Heart Disease Son age 4 7 Relation Name Status Comments Daughter Father age 89 Maternal Aunt Mother age 86 Neg. Sister 1 Sister 2 Son Social History Tobacco Use Types Packs/Day Years Used Date Smoking Tobacco: Former Cigarettes 0.5 10 1 958 - 09/13/1967 Smokeless Tobacco: Never Tobacco Cessation:Counseling Given: No Alcohol Use Standard Drinks/Week Comments Not Currently 0 (1 standard drink = 0.6 oz pur e alcohol) rare PHQ-2 Answer Date Recorded PHQ-2 TOTAL SCORE 0 05/26/2023 Social Connections Answer Date Recorded Frequency of Communication with Friends and Fami ly 0 10/19/2023 Financial Resource Strain Answer Date R ecorded Difficulty of Paying Living Expenses 3 10/19/2023 Difficulty of Paying Living Expenses Not on file 10/19/2023 Food Insecurity Answer Date Recorded Worried About Running Out of Food in the Last Ye ar 1 10/19/2023 Transportation Needs Answer Date Record ed Lack of Transportation (Medical) 1 10/19/2023 Housing Stability Answer Date Recorded Unable to Pay for Housing in the Last Year 1 10/19/2023 Sex and Gender Information Value Date Recorded Sex Assigned at Not on file Gender Identity Not on file Sexual Orientation Not on file Obstetrics History Last Filed Vital Signs Vital Sign Reading Time Taken Comments Blood Pressure 92/58 02/10/2024 1:14 PM CDT Pulse 81 02/10/2024 1:14 PM CDT Temperature 36.9 ??C (98.4 ??F) 04/24/2020 3:21 PM CD T Respiratory Rate 16 09/19/2019 1:10 PM MATERIAL DISTRIBUTOR Oxygen Saturation 96% 02/10/2024 1:14 PM CDT Inhaled Oxygen Concentration - - Weight 65.4 kg (144 lb 3.2 oz) 02/10/2024 1:14 P M CDT Height 157.5 cm (5' 2) 11/04/2023 1:07 PM MATERIAL DISTRIBUTOR Body Mass Index 26.37 11/04/2023 1:07 PM MATERIAL DISTRIBUTOR Plan of Treatment Upcoming Encounters Date Type Department Care Team (Late st Contact Info) Description 05/29/2024 9:30 AM CDT Orders Only [facility] [address] [place] [address] [place], [place] 05/29/2024 2:05 PM CDT Office Visit [facility] [address] [place] [address] Chucho Daugherty MD [address] [place] [address] Health Maintenance Due Date Last Done Comments COVID-19 vaccine series ( season) 2023 07/06/2023, 02/15/2023, 07/13/2022, Additional history exists Influenza for age 65+ 05/14/2024 05/26/2023 , 07/03/2022, 07/07/2021, Additional history exists Depression screening for age 12+ 05/26/2024 05/26/2023, 05/12/2022, 05/11/2022, Additional history exists Medicare Wellness for age 65+ 05/26/2024, 05/11/2022, 04/28/2021, Additional history exists BMI (ht and wt on same day) for age 18+ 11/04/2024 11/04/2023, 05/26/2023, 05/11/2022, Additional history exists Tetanus booster 07/07/2031 07/07/2021, 02/12, 08/15/2004, Additional history exists Zoster (shingles) series for age 50+ Completed 08/22/2020, 06/18/2020, 03/06/2014 Tdap Completed 07/07/2021, 03/10/2011 DEXA/DXA scan for age 65+ Completed 2021, 05/18/2017, 03/22/2014, Additional history exists Pneumococcal series for age 65+ Completed 09/09/2022, 07/17/2014, 08/15/2004 Procedures Procedure Name Priority Date/Time Associated Diagnosis Comments XR DXA BONE DENSITY 2 SITES AXIAL Routine 05/12/2022 10:45 AM CDT Post-menopausal from Last 3 Months or Most Recently Relevant to Health Maintenance Results * (ABNORMAL) XR DXA BONE DENSITY 2 SITES AXIAL (05/12/2022 10:45 AM CDT) Anatomical Region Laterality Modality Spine, HIPS, HIPL, HIPR Other Impressions 05/13/2022 8:07 AM CDT Osteopenia. RECOMMENDATIONS: The National Osteoporosis Foundation recommends pharmacologic treatment for patients with T-scores of -2.5 or less, patients with prior history of fragility fractures, or patients with 10-year probability of greater than 3% at hips or greater than 20% of suffering major osteoporotic fractures. Recommend continued optimization of calcium and vitamin D intake through dietary means and/or supplementation and regular exercise. Consider pharmacologic therapy for osteopenia with increased fracture risk. Follow-up bone density reading in 2 years if therapy initiated to assess therapeutic efficacy. Emili Lamas PA-C [facility] 05/13/2022 Narrative 05/13/2022 8:07 AM CDT For Patients: Results are automatically released to your [email or web address] ([email or web address]) account once available, in compliance with federal regulations. This means that you may see your results before your provider has had a chance to review them. Please allow 2-3 business days for your provider to comment on the results. XR DXA Bone Mineral Density (BMD) EXAM LOCATION: [address] [address] PATIENT NAME: Sarita Bill DATE OF : 1935 EXAM DATE: 05/12/2022 REQUESTING PROVIDER: Chucho Daugherty MD GENDER AT : female HEIGHT: 5' 2 (05/11/2022) WEIGHT: ??139 lb (05/11/2022) MENOPAUSAL STATUS: Postmenopausal RACE/ETHNICITY: White RISK FACTORS: Family History of Osteoporosis, Smoking (prior) and White Race CURRENT MEDICATION FOR BONE LOSS: NONE INDICATION: Post-Menopause COMPARISON DATE(S): 2016 DXA scans are compared to prior studies for a patient only when the two (or more) studies were performed on the same scanner. It is not possible to compare data generated on one scanner to data from another because there are not standards in DXA equipment. This applies even if the two scanners are made by the same cdl instructor. PROCEDURE: Dual-energy x-ray absorptiometry performed with routine technique. Reporting is completed in the form of a T-score. The T-score represents the standard deviation from peak bone mass based on young healthy adult. A Z-score is used for diagnosis in premenopausal women, and for men under the age of 50. FINDINGS: RESULT LUMBAR SPINE L1 - L4 BMD: 1.303 g/cm2 T-Score: + 1.0 Z-Score: + 3.0 Change from prior in 2007: ??Decrease 0.4%. RESULTS FEMUR Left femoral neck BMD: 0.739 g/cm2 T-Score: - 2.1 Z-Score: + 0.3 Change from prior in 2017: ??Decrease 9.3%. Right femoral neck BMD: 0.709 g/cm2 T-Score: - 2.4 Z-Score: ??0.0 Change from prior in 2017: ??Decrease 11.2%. Left hip BMD: 0.747 g/cm2 T-Score: - 2.1 Z-Score: + 0.2 Change from prior in 2017: ??Decrease 13.0%. Right hip BMD: 0.781 g/cm2 T-Score: - 1.8 Z-Score: + 0.5 Change from prior in 2017: ??Decrease 14.5%. WHO criteria: Normal: T-score at or above -1 SD Osteopenia: T-score between -1.1 and -2.4 SD Osteoporosis: T-score at or below -2.5 SD FRAX RISK CALCULATION (USED FOR OSTEOPENIA ONLY): 10-year probability of major osteoporotic fracture: 18.5%. 10-year probability of hip fracture: 6.5%. Chucho Daugherty MD DEXA from Last 3 Months or Most Recently Relevant to Health Maintenance Advance Directives Documents on File Type Date Recorded Patient Soil Analyst Expl anation POLST 11/12/2022 POLST 05/01/2019 4:27 PM POLST / AH NFLD 04/28/19 * Full Code (Latest Code Status on File) Date Activated Date Inactivated Comments 04/05/2019 8:25 AM 04/12/2019 4:17 PM Care Teams Chromosomal Disorders Counselor Relationship Specialty Start Date End Date Chucho Daugherty MD [address] [place] [address] PCP - General 10/09/04
== END 2024-03-13 11:33 | disposition home or self-care (01) ==
LOC: NFLDREF 11:33
PROVIDERS: PCP Family Medicine; Visit Provider Obstetrics & Gynecology
DX: R35.0 Frequency of micturition (principal)
CPT/HCPCS: 87086

== ENCOUNTER → 2024-09-15 14:26 | Outpatient (RCR) | payer SELFPAY | END | disposition home or self-care (01) | LOC: MOW 09-13 12:00 | PROVIDERS: PCP Family Medicine; Visit Provider Family Medicine | DX: Z76.0 Encounter for issue of repeat prescription (principal) | CPT/HCPCS: S5170 ==